=== PATIENT | male | born 1945 | race Caucasian/White ===

== ENCOUNTER 2017-01-09 18:40 | Inpatient (IN) | payer OTHER ==
[~2017-01-09] VITALS: Ht 175.3 cm; Wt 81.6 kg
[~2017-01-09 18:40] MED LIST: ALDACTONE25 MG PO; CHILDREN'S ASPI81 M1 PO; COREG25 M1 PO; COUMADIN 7.5 M7.5 MG PO; DIGOXIN125 MCG PO; FLUZONE HI180 MCG/02 SC; FUROSEMIDE20 MG PO; INDOMETHACIN50 MG PO; LISINOPRIL20 M1 PO; LOVASTATIN40 MG PO; PERCOCET 5-3251 EACH PO; TIKOSYN250 MCG PO; TYLENOL WITH C1 EACH PO
--- NOTE | 2017-01-09 18:43 | NUR ---
02 SAT 89 AT [facility]
--- NOTE | 2017-01-09 18:48 | NUR ---
C/O SOB WITH CONGESTED COUGH X 3-4 DAYS, DENIES CHEST PAIN, 02 SAT 90% IN TRIAGE. EKG DONE ON ARRIVAL.
--- NOTE | 2017-01-09 19:27 | ED DYSPNEA/ASTHMA COMPLAINT ---
History of Present Illness General Chief Complaint: Dyspnea (COPD, CHF, Other) Stated Complaint: SOB Source: patient, family, old records Exam Limitations: no limitations Vital Signs & Intake/Output Vital Signs & Intake/Output Vital Signs Date Time Temp Pulse Resp B/P Pulse O2 O2 Flow FiO2 Ox Delivery Rate 01/14 0903 96 Nasal 1.0L Cannula 01/14 0653 97.5 77 19 146/70 96 Nasal Cannula 01/14 0000 Nasal 1.0L Cannula 01/13 2102 97.9 84 19 125/70 94 01/13 2041 130/78 01/13 2004 97 Nasal 1.0L Cannula 01/13 1600 Nasal 1.0L Cannula 01/13 1457 97.6 70 20 110/60 95 01/13 1325 96 Nasal 1.0L Cannula 01/13 1005 70 150/80 01/13 1004 70 150/80 01/13 1004 70 150/80 ED Intake and Output 01/14 0000 01/13 1200 Intake Total 1250 0 Output Total Balance 1250 0 Intake, IV 0 Intake, Oral 1250 0 Number 0 Bowel Movements Allergies Coded Allergies: morphine (Intermediate, ITCHING 12/27/15) Reconcile Medications Aspirin (Children's Aspirin) 81 MG TAB.CHEW 1 TAB PO DAILY HEART/BLOOD ( Reported) Carvedilol (Coreg) 25 MG TABLET 1 TAB PO BID BP (Reported) Digoxin 125 MCG TABLET 1 TAB PO DAILY HEART (Reported) Dofetilide (Tikosyn) 250 MCG CAPSULE 1 CAP PO BID HEART (Reported) Furosemide 20 MG TABLET 1 TAB PO DAILY FLUID (Reported) Lisinopril 20 MG TABLET 1 TAB PO BID BP (Reported) Lovastatin 40 MG TABLET 1 TAB PO DAILY CHOLESTEROL (Reported) with food Oxycodone HCl/Acetaminophen (Percocet 5-325 MG Tablet) 5 MG-325 MG TABLET 1 TAB PO Q4-6 PRN PAIN Spironolactone (Aldactone) 25 MG TABLET 12.5 MG PO DAILY CHF (Reported) Warfarin Sodium (Coumadin) 7.5 MG TABLET 1 TAB PO DAILY BLOOD THINNER ( Reported) Triage Note: C/O SOB WITH CONGETED COUGH X 3-4 DAYS, DENIES CHEST PAIN, 02 SAT 90% IN TRIAGE. EKG DONE ON ARRIVAL. Triage Nurses Notes Reviewed? yes Onset: Abrupt Duration: week(s): (2), constant, continues in ED Timing: recent history Severity: moderate, severe Activities at Onset: none HPI: 71-year-old male comes into emergency room for further evaluation of shortness of breath and cough is been going on for the past 2 weeks. Mucus production. Fever chills body aches. Upper respiratory symptoms. Symptoms have gotten progressively worse. Denies any other associated symptoms. History of congestive heart failure and coronary disease. Denies any chest pain. Symptoms got worse causing the patient come to the emergency room for further evaluation of exacerbation of his symptoms. (LISETTE JORDAN) Past History Travel History Traveled to [place] past 21 day No Medical History Any Pertinent Medical History? see below for history Cardiovascular: CHF, hypertension Respiratory: asthma Musculoskeletal: ARTHRITIS Endocrine: BORDERLINE DM History of MRSA: No History of VRE: No History of CDIFF: No Pneumonia Vaccine: 09/17/16 Influenza Vaccine: 09/17/16 Surgical History Surgical History: non-contributory, hernia surgery Psychosocial History Who do you live with Spouse What is your primary language Ghanaian Tobacco Use: Quit <30 days ago ETOH Use: denies use Family History Hx Contributory? No (LISETTE JORDAN) Review of Systems Review of Systems Constitutional: Reports: see HPI. EENTM: Reports: see HPI. Respiratory: Reports: see HPI. Cardiovascular: Reports: no symptoms. GI: Reports: no symptoms. Genitourinary: Reports: no symptoms. Musculoskeletal: Reports: no symptoms. Skin: Reports: no symptoms. Neurological/Psychological: Reports: no symptoms. Hematologic/Endocrine: Reports: no symptoms. Immunologic/Allergic: Reports: no symptoms. All Other Systems: Reviewed and Negative (LISETTE JORDAN) Physical Exam Physical Exam General Appearance: well developed/nourished, no apparent distress, alert Head: atraumatic, normal appearance Eyes: Bilateral: normal appearance, EOMI. Ears, Nose, Throat: normal ENT inspection, hearing grossly normal Neck: normal inspection Respiratory: rhonchi, wheezing Cardiovascular: irregularly irregular Gastrointestinal: soft Extremities: normal inspection Neurologic/Psych: awake, alert, oriented x 3, normal gait, normal mood/affect Skin: intact, normal color (LISETTE JORDAN) Core Measures ACS in differential dx? Yes Severe Sepsis Present: No Septic Shock Present: No (OLLIE WANG) Progress Differential Diagnosis: asthma, AMI, bronchitis, costochondritis, CHF, COPD, musculoskeletal pain, pericarditis, pulmonary embolism, pneumonia, pneumothorax, rib fracture, unstable angina Plan of Care: Orders Procedure Date/time Status PROTHROMBIN TIME 01/14 0600 Complete Heart Healthy Diet 01/13 L Active PROTHROMBIN TIME 01/13 1534 Complete RT RE-EVALUATION 01/13 1342 Complete RT: Reevaluation 01/13 1101 Active Current Medications Sig/Toby Start time Last Medication Dose Stop Time Status Admin Acetaminophen 650 MG Q6P PRN 01/090 AC (Tylenol) Ketorolac 15 MG Q6P PRN 01/09 220 AC Tromethamine (Toradol) Laboratory Tests 01/14/17 0732: PT 20.2 H, INR 1.94 H 01/13/17 1600: PT 23.9 H, INR 2.29 H The case was discussed with and signed out to me by DONNELL Thomas at 8 PM 01/09/2017 9:28:49 PM discussed with the patient and his family at length all of his lab results the patient is 93-94% wheezing in all lung hagen on 2 L discussed with them at length that I believe premature discharge would BE medically harmful patient denies pain with inspiration repeat breathing treatment ordered Solu-Medrol 125, Zithromax 500 mg IV ordered.repeat duoneb ordered. case discussed with Dr. Diehl who agrees with plan. d/w pt his elevated INR- The patient already took his dose of Coumadin this evening Case discussed with Dr. Del Cid will admit (OLLIE WANG) Diagnostic Imaging: Viewed by Me: Radiology Read. Discussed w/RAD: Radiology Read. Initial ED EKG: rate (80), AFIB Hand-Off Endorsed To: OLLIE WANG Endorsed Time: 2001 Pending: labs, Xray (BLANCA JACOBO,LISETTE) Radiology Impression: PATIENT: AUGUSTUS PRASAD PRESENT AGE: 71 PATIENT ACCOUNT NO: [id number] : 47 LOCATION: [facility], [place] ORDERING PHYSICIAN: LISETTE JACOBO SERVICE DATE: 01/09/17 EXAM TYPE : RAD - XRY-CHEST XRAY, PA AND LATERAL EXAMINATION: XR CHEST CLINICAL INFORMATION: Cough. Shortness of breath COMPARISON: Chest x-ray 09/08/2010 TECHNIQUE: 2 views of the chest were obtained. FINDINGS: Dual-lead pacemaker in right atrium and right ventricle unchanged position since prior study. Heart size is normal. There is calcification of aorta. No pulmonary vascular congestion. Lungs are clear. No pleural effusion. Multilevel degenerative change of spine with disc height narrowing and endplate spurs. IMPRESSION: No acute change of chest. DICTATED BY: KATELYNN PEREZ MD DATE/TIME DICTATED:01/09/172006 HAND GLASS CUTTER:ABIMAEL DATE/TIME TRANSCRIBED:01/09/172006 CONFIDENTIAL, DO NOT COPY WITHOUT APPROPRIATE AUTHORIZATION. <Electronically signed in Other Vendor System> SIGNED BY: KATELYNN PEREZ MD 01/09/172012 Rhythm Strip: normal sinus rhythm (OLLIE WANG) Departure Departure Condition: Stable Referrals: ANTELMO DEL CID MD (PCP/Family) Departure Forms: Customer Survey General Discharge Information (LISETTE JORDAN) Departure Time of Disposition: 2128 Disposition: STILL A PATIENT Clinical Impression Primary Impression: Bronchitis Secondary Impressions: Elevated INR Admission Note Spoke With: ANTELMO DEL CID MD Documentation of Exam: Documentation of any treatments & extenuating circumstances including Concerns Regarding Discharge (functional status, medication knowledge or non-compliance, living conditions, etc.) that warrant an admission rather than observation: IV steroids IV antibiotics trend labs, pulmonology consult respiratory treatment when necessary premature discharge would BE medically harmful as patient desaturates on room air not at baseline (OLLIE WANG) PA/VIDEO OPERATOR Co-Sign Statement Statement: ED Attending supervision documentation- [X] I saw and evaluated the patient. I have also reviewed all the pertinent lab results and diagnostic results. I agree with the findings and the plan of care as documented in the PA's/VIDEO OPERATOR's documentation. [X] I have reviewed the ED Record and agree with the PA's/VIDEO OPERATOR's documentation. [] Additions or exceptions (if any) to the PAs/VIDEO OPERATOR's note and plan are summarized below: [] (ASHWIN ESTRADA,SHIRIN) Critical Care Note Critical Care Note Critical Care Time: non-applicable (OLLIE WANG)
--- NOTE | 2017-01-09 20:11 | NUR ---
BLOOD DRAWN AND SENT TO LAB GOLD LAV BLUE PINK RANDHAWA TUBES COLLECTED WELL BLOOD CULTURES 2 SETS
--- NOTE | 2017-01-09 20:13 | RADIOLOGY REPORT ---
EXAMINATION: XR CHEST CLINICAL INFORMATION: Cough. Shortness of breath COMPARISON: Chest x-ray 09/08/2010 TECHNIQUE: 2 views of the chest were obtained. FINDINGS: Dual-lead pacemaker in right atrium and right ventricle unchanged position since prior study. Heart size is normal. There is calcification of aorta. No pulmonary vascular congestion. Lungs are clear. No pleural effusion. Multilevel degenerative change of spine with disc height narrowing and endplate spurs. IMPRESSION: No acute change of chest.
[2017-01-09 20:17] LABS: ABSOLUTE BASOPHIL COUNT 0 /CUMM (0.0-0.2); ABSOLUTE EOSINOPHIL COUNT 0.1 /CUMM (0.0-0.7); ABSOLUTE GRANULOCYTE CT 3.7 /CUMM (1.4-6.5); ABSOLUTE LYMPH COUNT 1.1 /CUMM (1.2-3.4); ABSOLUTE MONOCYTE COUNT 0.5 /CUMM (0.10-0.60); BASOPHIL % 0.3 % (0.0-2.0); EOSINOPHIL % 2.1 % (0-5); GRANULOCYTE % 68.6 % (42.2-75.2); HEMATOCRIT 35.8 % (42-52); MEAN CORPUSCULAR HGB 27.1 PG (27.0-31.0); MEAN CORPUSCULAR HGB CONC 33.1 G/DL (33.0-37.0); MEAN CORPUSCULAR VOLUME 81.9 FL (80.0-94.0); MEAN PLATELET VOLUME 7.5 FL (7.4-10.4); PLATELET COUNT 167 /CUMM (130-400); RBC DISTRIBUTION WIDTH 14.3 % (11.5-14.5); RED BLOOD CELL CT 4.37 /CUMM (4.70-6.10); WHITE BLOOD CELL COUNT 5.4 /CUMM (4.8-10.8)
--- NOTE | 2017-01-09 20:36 | NUR ---
PT REPORTS FEELING BETTER AFTER BREATHING TREATMENT. PT DENIES CP. PT APPEARS COMFORTBALE. FAMILY AT BEDSIDE.
--- NOTE | 2017-01-09 21:44 | NUR ---
CRITICAL TEST RESULTS [id number] AUGUSTUS PRASAD 71 M TESTS AND RESULTS: PT 55 INR 5.33 Results received and read back by: OSCAR HILL Results received date and time: 01/09/172143 The following provider was notified of the results, and read the results back: DONNELL JOHNSON Notified date and time: 01/09/17 at 2140
--- NOTE | 2017-01-09 22:37 | NUR ---
HOUSE STAFF AT BEDSIDE
--- NOTE | 2017-01-09 23:13 | History & Physical ---
See Addendum AVERY ESTRADA,NAPOLEONCarlos 01/09/17 4993: General Information and HPI MD Statement: I have seen and personally examined AUGUSTUS PRASAD and documented this H&P. The patient is a 71 year old M who presented with a patient stated chief complaint of [shortness of breath]. Source of Information: patient, old records Exam Limitations: no limitations History of Present Illness: This is a 71-year-old male with past medical history significant for asthma, BPH , obstructive lung disease, CHF S/P hospitalization and intubation for apnea in 2008, arthritis, nonischemic cardiomyopathy with reduced EF (20-30%?) and defibrillator, pacemaker in place, A. fib on Coumadin, who comes in with chief complaint of shortness of breath. Patient states that he has had increased trouble breathing in the past 3 or 4 days. Patient also endorses cough with whitish sputum and congestion/coryza. Today he stated his symptoms got in the way of his daily living. Normally he is able to ambulate up a flight of stairs with no difficulty, however today he felt short of breath even sitting down. Denies any fever, nausea, vomiting, chest pain, palpitations, dizziness, increased orthopnea. He does endorse some chills and body aches. He has sick contact in ex- with whom he is co-habitating. Patient denies any alcohol, drugs, or current smoking. Additionally denies any recent travel. Note pt has significant surgical history including a triple a repair in September 2016, pacemaker placement, defibrillator, tonsils, carpal tunnel 2, cardiac cath, and hernia with mesh repair. Allergies/Medications Allergies: Coded Allergies: morphine (Intermediate, ITCHING 12/27/15) Home Med list Aspirin (Children's Aspirin) 81 MG TAB.CHEW 1 TAB PO DAILY HEART/BLOOD ( Reported) Carvedilol (Coreg) 25 MG TABLET 1 TAB PO BID BP (Reported) Digoxin 125 MCG TABLET 1 TAB PO DAILY HEART (Reported) Dofetilide (Tikosyn) 250 MCG CAPSULE 1 CAP PO BID HEART (Reported) Furosemide 20 MG TABLET 1 TAB PO DAILY FLUID (Reported) Lisinopril 20 MG TABLET 1 TAB PO BID BP (Reported) Lovastatin 40 MG TABLET 1 TAB PO DAILY CHOLESTEROL (Reported) with food Oxycodone HCl/Acetaminophen (Percocet 5-325 MG Tablet) 5 MG-325 MG TABLET 1 TAB PO Q4-6 PRN PAIN Spironolactone (Aldactone) 25 MG TABLET 12.5 MG PO DAILY CHF (Reported) Warfarin Sodium (Coumadin) 7.5 MG TABLET 1 TAB PO DAILY BLOOD THINNER ( Reported) Compliance With Home Meds: GOOD Past History Travel History Traveled to [place] past 21 day No Medical History Cardiovascular: CHF, hypertension Respiratory: asthma Musculoskeletal: ARTHRITIS Endocrine: BORDERLINE DM History of MRSA: No History of VRE: No History of CDIFF: No Pneumonia Vaccine: 09/17/16 Influenza Vaccine: 09/17/16 Surgical History Surgical History: hernia surgery, AAA repair in September 2016. Cardiac cath, hernia repair with mesh, carpal tunnel bilaterally, tonsils, pacemaker, defibrillator, Past Family/Social History Psychosocial History Who Do You Live With? ex- Primary Language: Turkish Smoking Status: Former Smoker ETOH Use: denies use Illicit Drug Use: denies illicit drug use Functional Ability ADLs Independent: dressing, eating, toileting, bathing. Ambulation: independent IADLs Independent: shopping, housework, finances, food prep, telephone, transportation , medication admin. Review of Systems Review of Systems Constitutional: Reports: chills, diaphoresis, malaise, weakness. Denies: fever. EENTM: Denies: blurred vision, double vision, visual changes, hearing changes, nasal pain, throat pain. Cardiovascular: Denies: chest pain, edema, palpitations, syncope. Respiratory: Reports: cough, short of breath, sputum production, wheezing. Denies: hemoptysis. GI: Reports: constipation. Denies: abdominal pain, bloating, diarrhea, nausea, vomiting. Genitourinary: Reports: no symptoms. Musculoskeletal: Reports: joint pain. Denies: back pain. Skin: Reports: no symptoms. Exam & Diagnostic Data Last 24 Hrs of Vital Signs/I&O Vital Signs Date Time Temp Pulse Resp B/P Pulse O2 O2 Flow FiO2 Ox Delivery Rate 01/10 0145 94 Nasal 2.0L Cannula 01/10 0054 98.0 74 20 150/90 94 Nasal 2.0L Cannula 01/10 0015 96.0 76 18 123/87 96 Nasal 2.0L Cannula 01/09 2300 97.0 78 20 110/69 95 Nasal 2.0L Cannula 01/09 2145 94 Nasal 2.0L Cannula 01/09 2029 97.6 71 20 107/64 94 Nasal 2.0L Cannula 01/09 1947 98 Nasal 2.0L Cannula 01/09 1855 97.6 94 18 179/103 90 Room Air Intake & Output 01/10 0800 01/10 0000 01/09 1600 Intake Total 20 Output Total Balance 20 Intake, Oral 20 Patient 81.647 kg 81.647 kg Weight Physical Exam General Appearance Alert, Oriented X3, Cooperative, No Acute Distress Skin No Rashes, No Breakdown HEENT Atraumatic, PERRLA, EOMI Neck Supple Cardiovascular irregular and distant heart sounds. Lungs pt had some diminished air movmement, crackles particularly in R. Lower lobe, no egophony. Abdomen Soft, No Tenderness Neurological Normal Speech, Cranial Nerves 3-12 NL Extremities No Edema Last 24 Hrs of Labs/Yusuf: Laboratory Tests 01/10/17 0010: Troponin I Pending 01/09/17 2224: Lactic Acid Cancelled 01/09/172003: Anion Gap 10, Estimated GFR > 60, BUN/Creatinine Ratio 20.0, Glucose 115 H, Lactic Acid 0.7, Calcium 8.7, Total Bilirubin 0.5, AST 30, ALT 37, Alkaline Phosphatase 72, Creatine Kinase 214 H, Troponin I 0.02, Total Protein 6.9, Albumin 3.7, Globulin 3.2, Albumin/Globulin Ratio 1.2, PT 55.0 *H, INR 5.33 *H, CBC w Diff NO MAN DIFF REQ, RBC 4.37 L, MCV 81.9, MCH 27.1, RDW 14.3, MPV 7.5, Gran % 68.6, Lymphocytes % 20.6, Monocytes % 8.4, Eosinophils % 2.1, Basophils % 0.3, Absolute Granulocytes 3.7, Absolute Lymphocytes 1.1 L, Absolute Monocytes 0.5, Absolute Eosinophils 0.1, Absolute Basophils 0, PUBS MCHC 33.1 Microbiology 01/10 2256 URINE ROUT: Legionella Antigen - ORD 01/10 2256 URINE ROUT: Streptococcus pneumoniae Antigen (M - ORD 01/10 2256 LOWER RESP: Respiratory Culture - ORD 01/10 2256 LOWER RESP: Gram Stain - ORD 01/09 2010 BLOOD: Blood Culture - RECD 01/10 2004 BLOOD: Blood Culture - RECD 01/09 1946 NASROSAURAARYN: Influenza Virus A & B Rapid Smear - ORD Assessment/Plan Assessment: This is a 71-year-old male with significant cardiac history including nonischemic cardiomyopathy, with a defibrillator and pacemaker, triple a with endovascular aneurysm repair in September 2016, who presents with chief complaint of shortness of breath. At [facility] in ED patient had O2 sat of 89. Given his history of CHF and intubation in 2008 patient was admitted for further workup of shortness of breath. ED workup shows: 97.6, 94, 18, 179/103, 90. White count 5.4, hemoglobin 12.8, hematocrit 35.8, INR 5.33, BEP within normal limits. CK 214. Chest x-ray showed no acute changes, no evidence of vascular congestion. plan: Acute hypoxic Respfailure: Patient does have history of CHF, obstructive lung disease, asthma, and presents with chief complaint of 3-4 days of difficulty breathing. Satting 89 initially in ED. He subsequently improved with nasal cannula and 2 Neb treatments. At present looks like respiratory etiology for shortness of breath. His chest x-ray is clear of any vascular congestion. Patient denies any chest pain, and has no overt signs of volume overload including lower extremity edema. Flu is negative. Though note CK elevated at 214 and patient does complain of myalgias. Cannot rule out possibility of an influenza-like illness or viral bronchitis. * Con't Legionella test * Con't O2 via nasal cannula * TRC nebs * At this time as patient is afebrile, with no white count ,hold off antibiotics Supra-therapeutic INR: Patient has history of A. fib on Coumadin. Today INR measured at 5.33. The patient's surgery took his Coumadin earlier today. * Hold Coumadin * Continue to remeasure INR Cardiomyopathy, A. fib, hypercholesterolemia, CHF : Chronic and stable * Continue Tikosyn 250 g twice a day * Continue Carvedilol 2.5 twice a day * Continue Lisinopril 20 mg twice a day * Continue 10 you Furosemide 20 mg * Continue Digoxin 0.125 * Continue Lovastatin 40 mg * Continue Spironolactone 12.5 mg * HOLD! Coumadin 7.5 Full code Heart healthy diet Chemical DVT prophylaxis As Ranked By This Provider Problem List: 1. Bronchitis 2. Elevated INR Core Measures/Miscellaneous Acute Coronary Syndrome ACS Diagnosis: No Cerebrovascular Accident CVA/TIA Diagnosis: No Congestive Heart Failure CHF Diagnosis: No Venous Thromboembolism VTE Risk Factors: [facility] prophylaxis d/t: No contraindications No VTE Pharm Prophylaxis d/t: No contraindications VTE Diagnosis: No VTE Type: NONE VTE Confirmed by (Test): NONE Severe Sepsis Severe Sepsis Present: No Septic Shock Septic Shock Present: No Miscellaneous Documentation Attending Case Discussed With: ANTELMO ELIZONDO MD Primary Care Physician: ANTELMO ELIZONDO MD Patient sees these Specialists unknown Level of Patient Care: General Medicine VIOLET ESTRADA,CYNDY 01/10/17 0418: Resident Review Statement Resident Statement: examined this patient, discussed with biology intern, agreed with biology intern, discussed with family, reviewed EMR data (avail), discussed with nursing , discussed with case mgmt, reviewed images, amended to note Other Findings: 71-year-old man with history of severe congestive heart failure status post permanent pacemaker, coronary artery disease with myocardial infarction status post cath, AAA status post Arash asthma osteoarthritis proximal margin fibrillation dyslipidemia presents with shortness of breath productive cough 2 weeks fevers chills body aches. Suspect bronchitis, or influenza-like illness. Supportive treatment. Discontinue warfarin, check INR daily. Continue cardiac meds for rate control. Monitor for fever. Await blood cultures. Antibiotics if patient gets worse. DVT prophylaxis patient is already anticoagulated on warfarin. Full code YUSUF HUANG 01/12/17 0423: Attending MD Review Statement Attending Statement Attending Assessment/Plan: Patient's H and P is assigned to me as an error. Patient is seen and discussed with Dr. Antelmo ELIZONDO MD.
--- NOTE | 2017-01-09 23:31 | NUR ---
PT SLEEPING. EASILY AROUSED TO VERBAL STIMULATION. RESP UNLABORED. NO APPARENT DISTRESS
--- NOTE | 2017-01-10 00:13 | NUR ---
REPEAT TROPONIN SENT
[2017-01-10 00:54] VITALS: BP 150/90
--- NOTE | 2017-01-10 01:57 | NUR ---
NURSING NOTE: PT ARRIVED TO 2NA VIA WHEELCHAIR AT 0035. PT ALERT, ORIENTS, CALM, AND COOPERATIVE. PT ON 2L NC, NO SIGNS OF RESPIRATORY DISTRESS. PT ORIENTED TO STAFF, ROOM, AND CALL GRADY. PT AMBULATING INDPENDENTLY, EXTRENSION TUBING PROVIDED FOR OXYGEN. ADMISSION ASSESSMENT COMPLETED. QUICK FLU SWAB NOT PERFORMED IN ER. THIS RN CALLED ER NURSE OSCAR TO CONFIRM. FLU SWAB REQUESTED FROM LAB. RN WILL CONTINUE TO MONITOR.
[2017-01-10 06:38] VITALS: BP 140/80
--- NOTE | 2017-01-10 07:17 | PN- Housestaff ---
Subjective Follow-up For: Bronchitis Supratherapeutic INR Atrial fibrillation Subjective: Patient was seen and examined this morning, patient is afebrile, vital signs are stable, patient wanted to be on 2 L oxygen saturation 96%. Patient reported dry cough, no other complaint. Review of Systems Constitutional: Reports: see HPI. Objective Last 24 Hrs of Vital Signs/I&O Vital Signs Date Time Temp Pulse Resp B/P Pulse O2 O2 Flow FiO2 Ox Delivery Rate 01/10 1427 97.4 70 20 152/84 95 01/10 1217 Nasal 2.0L Cannula 01/10 1215 96 Nasal 2.0L Cannula 01/10 0845 140/88 01/10 0845 140/88 01/10 0844 140/88 01/10 0800 96 Nasal 2.0L Cannula 01/10 0638 97.9 71 20 140/80 97 Nasal 2.0L Cannula 01/10 0300 75 158/88 01/10 0145 94 Nasal 2.0L Cannula 01/10 0054 98.0 74 20 150/90 94 Nasal 2.0L Cannula 01/10 0015 96.0 76 18 123/87 96 Nasal 2.0L Cannula 01/09 2300 97.0 78 20 110/69 95 Nasal 2.0L Cannula 01/09 2145 94 Nasal 2.0L Cannula 01/09 2029 97.6 71 20 107/64 94 Nasal 2.0L Cannula 01/09 1947 98 Nasal 2.0L Cannula 01/09 1855 97.6 94 18 179/103 90 Room Air Intake & Output 01/10 1600 01/10 0800 01/10 0000 Intake Total 1800 400 20 Output Total 680 Balance 1120 400 20 Intake, Oral 1800 400 20 Output, Urine 680 Patient 81.647 kg 81.647 kg Weight Physical Exam General Appearance: Alert, Oriented X3, Cooperative, No Acute Distress Skin: No Rashes, No Breakdown, No Significant Lesion HEENT: Atraumatic, PERRLA, EOMI, Mucous Membr. moist/pink Neck: Supple, No JVD Cardiovascular: Normal S1, Normal S2, No Murmurs, irregular rhythm Lungs: Clear to Auscultation, Normal Air Movement Abdomen: Normal Bowel Sounds, Soft, No Tenderness Neurological: Normal Gait, Normal Speech, Strength at 5/5 X4 Ext, Normal Tone, Sensation Intact, Cranial Nerves 3-12 NL, Reflexes 2+ Extremities: No Clubbing, No Cyanosis, No Edema, Normal Pulses Assessment/Plan Assessment: This is a 71-year-old male with significant cardiac history including nonischemic cardiomyopathy, with a defibrillator and pacemaker, triple a with endovascular aneurysm repair in September 2016, who presents with chief complaint of shortness of breath. At [facility] in ED patient had O2 sat of 89. Given his history of CHF and intubation in 2008 patient was admitted for further workup of shortness of breath. plan: Bronchitis * Con't O2 via nasal cannula * TRC nebs * Patient continued to be afebrile with no white blood cell count * Continue off antibiotics Supra-therapeutic INR: Patient has history of A. fib on Coumadin. * INR 5.33 * Hold Coumadin * INR tomorrow and will dose accordingly Cardiomyopathy, A. fib, hypercholesterolemia, CHF : Chronic and stable * Continue Tikosyn 250 g twice a day * Continue Carvedilol 2.5 twice a day * Continue Lisinopril 20 mg twice a day * Continue 10 you Furosemide 20 mg * Continue Digoxin 0.125 * Continue Lovastatin 40 mg * Continue Spironolactone 12.5 mg * HOLD! Coumadin 7.5 Full code Heart healthy diet DVT prophylaxis mechanical Problem List: 1. Elevated INR 2. Bronchitis Pain Ratin Pain Location: None Pain Goal: Pain 4 or less Pain Plan: Mild pain pathway Tomorrow's Labs & Rationales: INR
[2017-01-10 08:39] LABS: ABSOLUTE BASOPHIL COUNT 0 /CUMM (0.0-0.2); ABSOLUTE EOSINOPHIL COUNT 0 /CUMM (0.0-0.7); ABSOLUTE GRANULOCYTE CT 1.9 /CUMM (1.4-6.5); ABSOLUTE LYMPH COUNT 0.8 /CUMM (1.2-3.4); ABSOLUTE MONOCYTE COUNT 0.1 /CUMM (0.10-0.60); BASOPHIL % 0.4 % (0.0-2.0); EOSINOPHIL % 0.2 % (0-5); GRANULOCYTE % 67.6 % (42.2-75.2); HEMATOCRIT 34.6 % (42-52); MEAN CORPUSCULAR HGB CONC 33.2 G/DL (33.0-37.0); MEAN CORPUSCULAR VOLUME 81.4 FL (80.0-94.0); MEAN PLATELET VOLUME 8.1 FL (7.4-10.4); PLATELET COUNT 163 /CUMM (130-400); RBC DISTRIBUTION WIDTH 14.5 % (11.5-14.5); RED BLOOD CELL CT 4.25 /CUMM (4.70-6.10); WHITE BLOOD CELL COUNT 2.8 /CUMM (4.8-10.8)
--- NOTE | 2017-01-10 12:18 | Admission Certification ---
Admission Certification Certification Statement - As attending physician, I certify that at the time of - admission, based on clinical presentation, severity of - symptoms, need for further diagnostic testing and - therapeutic interventions, and risk of adverse outcomes - without in-hospital treatment, in my clinical assessment, - this patient requires an acute hospital stay for a minimum - of two nights or longer. I have also considered psychsocial - factors such as support system, advanced age, financial - issues, cognitive issues, and failed out-patient treatments, - past re-admission history, safety of patient, and lack of - compliance as applicable. Specific rationale supporting this admission is: Cough, wheezing or shortness of breath not responding to ER treatment
--- NOTE | 2017-01-10 12:22 | PN- Att Addend ---
Attending Addendum Attending Brief Note 71-year-old white male with many comorbidities, several days increased shortness of breath cough sputum comes to the emergency room hypoxemic. Not responding to respiratory treatments. Chest x-ray showed no acute infiltrates or acute congestive heart failure, his white count was normal but due to all his comorbidities and not feeling any better and being hypoxemic patient was admitted on the visit this morning, he feels a little better, still wheezing but states to respiratory treatments help his oxygen is on. Laboratory Tests 01/10/17 0630: Anion Gap 10, Estimated GFR > 60, BUN/Creatinine Ratio 28.3 H, CBC w Diff NO MAN DIFF REQ, RBC 4.25 L, MCV 81.4, MCH 27.0, RDW 14.5, MPV 8.1, Gran % 67.6, Lymphocytes % 28.7, Monocytes % 3.1, Eosinophils % 0.2, Basophils % 0.4, Absolute Granulocytes 1.9, Absolute Lymphocytes 0.8 L, Absolute Monocytes 0.1 L, Absolute Eosinophils 0, Absolute Basophils 0, PUBS MCHC 33.2 01/10/17 0010: Troponin I 0.02 01/09/17 2224: Lactic Acid Cancelled 01/09/17 2004: Anion Gap 10, Estimated GFR > 60, BUN/Creatinine Ratio 20.0, Glucose 115 H, Lactic Acid 0.7, Calcium 8.7, Total Bilirubin 0.5, AST 30, ALT 37, Alkaline Phosphatase 72, Creatine Kinase 214 H, Troponin I 0.02, Total Protein 6.9, Albumin 3.7, Globulin 3.2, Albumin/Globulin Ratio 1.2, PT 55.0 *H, INR 5.33 *H, CBC w Diff NO MAN DIFF REQ, RBC 4.37 L, MCV 81.9, MCH 27.1, RDW 14.3, MPV 7.5, Gran % 68.6, Lymphocytes % 20.6, Monocytes % 8.4, Eosinophils % 2.1, Basophils % 0.3, Absolute Granulocytes 3.7, Absolute Lymphocytes 1.1 L, Absolute Monocytes 0.5, Absolute Eosinophils 0.1, Absolute Basophils 0, PUBS MCHC 33.1 Microbiology 01/10 255 NASOPHARYN: Influenza Virus A & B Rapid Smear - COMP Microbiology Date/Time Procedure - Status Source Growth 01/10 255 Influenza Virus A & B Rapid Smear - COMP NASOPHARYN 01/10 2256 Legionella Antigen - COLB URINE ROUT 01/10 2256 Streptococcus pneumoniae Antigen (M - COLB URINE ROUT 01/10 2256 Respiratory Culture - COLB LOWER RESP 01/10 2256 Gram Stain - COLB LOWER RESP 01/09 2010 Blood Culture - RECD BLOOD 01/10 2004 Blood Culture - RECD BLOOD
[2017-01-10 14:27] VITALS: BP 152/84
[2017-01-10 21:20] VITALS: BP 180/100
--- NOTE | 2017-01-10 21:29 | NUR ---
PT'S BP NOTED TO BE 180/100. SCHEDULED COREG AND LISINOPRIL ADMINISTERED. GRAPHIC DESIGN ASSISTANT SHERIDAN VARELA UPDATED. WILL CHECK PT'S BP AGAIN IN 45 MINS TO AN HOUR.
[2017-01-10 21:45] VITALS: BP 184/110
[2017-01-10 22:42] VITALS: BP 146/96
[2017-01-11 07:05] VITALS: BP 152/96
--- NOTE | 2017-01-11 07:29 | PN- Housestaff ---
Subjective Follow-up For: Bronchitis Supratherapeutic INR Atrial fibrillation Subjective: Patient was seen and examined this morning, he complained of congested chest and productive cough. He continued to be afebrile. Denied any fever or chills. Denied any joint pain or muscle pain. Patient reported that he quit smoking 10 years ago, never noticed with any lung disease. Review of Systems Constitutional: Reports: see HPI. Objective Last 24 Hrs of Vital Signs/I&O Vital Signs Date Time Temp Pulse Resp B/P Pulse O2 O2 Flow FiO2 Ox Delivery Rate 01/11 0934 70 150/78 01/11 0934 70 150/78 01/11 0934 70 150/78 01/11 0809 95 Nasal 2.0L Cannula 01/11 0705 98.3 74 20 152/96 96 Nasal Cannula 01/11 0000 Nasal 2.0L Cannula 01/10 2242 98.7 76 20 146/96 95 Nasal Cannula 01/10 2145 98.4 74 20 184/110 96 Nasal Cannula 01/10 2124 72 180/100 01/10 2124 72 180/100 01/10 2120 72 180/100 01/10 1730 96 Nasal 2.0L Cannula 01/10 1600 98 Nasal 2.0L Cannula 01/10 1427 97.4 70 20 152/84 95 01/10 1217 Nasal 2.0L Cannula 01/10 1215 96 Nasal 2.0L Cannula Intake & Output 01/11 1600 01/11 0800 01/11 0000 Intake Total 100 100 Output Total Balance 100 100 Intake, Oral 100 100 Physical Exam General Appearance: Alert, Oriented X3, Cooperative, No Acute Distress Skin: No Rashes, No Breakdown, No Significant Lesion HEENT: Atraumatic, PERRLA, EOMI, Mucous Membr. moist/pink Neck: Supple Cardiovascular: Normal S1, Normal S2, No Murmurs, irregular rhythm Lungs: decreased air entry I lateral diffuse rhonchi and wheeze Abdomen: Normal Bowel Sounds, Soft, No Tenderness Neurological: Normal Gait, Normal Speech, Strength at 5/5 X4 Ext, Normal Tone, Sensation Intact, Cranial Nerves 3-12 NL, Reflexes 2+ Extremities: No Clubbing, No Cyanosis, No Edema, Normal Pulses Assessment/Plan Assessment: This is a 71-year-old male with significant cardiac history including nonischemic cardiomyopathy, with a defibrillator and pacemaker, triple a with endovascular aneurysm repair in September 2016, who presents with chief complaint of shortness of breath. At [facility] in ED patient had O2 sat of 89. Given his history of CHF and intubation in 2008 patient was admitted for further workup of shortness of breath. plan: Bronchitis * Con't O2 via nasal cannula * TRC nebs * Will start Solu-Medrol 40 mg twice a day * Patient continued to be afebrile with no white blood cell count * Continue off antibiotics * Possible discharge tomorrow if patient improves * If symptoms didn't improve consider chest x-ray and CBC, start antibiotic for possible COPD exacerbation * Patient will be advised to follow with primary care physician and possible correctional supervisor for pulmonary function test given history of smoking Supra-therapeutic INR: Patient has history of A. fib on Coumadin. * INR 4.76 <5.33 * Hold Coumadin * INR tomorrow and will dose accordingly Cardiomyopathy, A. fib, hypercholesterolemia, CHF : Chronic and stable * Continue Tikosyn 250 g twice a day * Continue Carvedilol 2.5 twice a day * Continue Lisinopril 20 mg twice a day * Continue 10 you Furosemide 20 mg * Continue Digoxin 0.125 * Continue Lovastatin 40 mg * Continue Spironolactone 12.5 mg * HOLD! Coumadin 7.5 Full code Heart healthy diet DVT prophylaxis mechanical Problem List: 1. Bronchitis 2. Elevated INR Pain Ratin Pain Location: None Pain Goal: Pain 4 or less Pain Plan: Mild pain pathway Tomorrow's Labs & Rationales: INR, CBC
[2017-01-11 08:49] LABS: PT 49.2 SEC (9.4-12.5)
--- NOTE | 2017-01-11 11:34 | PN- Att Addend ---
Attending Addendum Attending Brief Note Patient had more wheezing overnight was reassessed this morning and was started on IV steroids. A little bit more comfortable now. Patient is a febrile vital signs are stable and no other changes on physical. Will continue to monitor during the day with IV steroids respiratory therapy. In terms continue will ask pulmonary to check the patient. Current Medications Sig/Toby Start time Last Medication Dose Route Stop Time Status Admin Acetaminophen 650 MG Q6P PRN 01/09 2200 AC PO Albuterol Sulfate 3 ML TID 01/10 1600 AC 01/11 INH 0808 Aspirin 81 MG DAILY 01/10 1000 AC 01/11 PO 0934 Atorvastatin Calcium 10 MG 1700 01/10 1700 AC 01/10 PO 1703 Carvedilol 25 MG BID 01/10 0016 AC 01/11 PO 0934 Digoxin 0.125 MG DAILY 01/10 1000 AC 01/11 PO 0934 Dofetilide 250 MCG BID 01/10 0015 AC 01/11 PO 0934 Furosemide 20 MG DAILY 01/10 1000 AC 01/11 PO 0934 Guaifenesin 600 MG Q12 01/09 2201 AC 01/11 PO 0934 Ketorolac 15 MG Q6P PRN 01/09 2200 AC Tromethamine IV Lisinopril 20 MG BID 01/10 1000 AC 01/11 PO 0934 Methylprednisolone 40 MG BID 01/11 1000 AC 01/11 IV 0932 Patient Medication 1 ED .STK-MED ONE 01/10 1425 [place] Teaching ED 01/10 1426 Spironolactone 12.5 MG DAILY 01/10 1000 AC 01/11 PO 0933 Laboratory Tests 01/11/17 0650: PT 49.2 *H, INR 4.76 *H Vital Signs Date Time Temp Pulse Resp B/P Pulse O2 O2 Flow FiO2 Ox Delivery Rate 01/11 934 70 150/78 01/11 0934 70 150/78 01/11 0934 70 150/78 01/11 0809 95 Nasal 2.0L Cannula 01/11 0800 95 Nasal 2.0L Cannula 01/11 0705 98.3 74 20 152/96 96 Nasal Cannula
[2017-01-11 14:54] VITALS: BP 140/62
--- NOTE | 2017-01-11 16:10 | Patient Discharge Instructions ---
Discharge Instructions General Discharge Information You were seen/treated for: Bronchitis Special Instructions: -Please follow-up with your primary care physician within 1 week after discharge -Please follow-up with your voice data communications engineer after discharge -Please follow-up with the vascular surgery after discharge -Please follow up with Dr. Jose within 1-2 weeks after discharge Acute Coronary Syndrome Inclusion Criteria At DC or during hospital stay patient has or had the following: ACS DIAGNOSIS No Discharge Core Measures Meds if any: Prescribed or Continued at Discharge Meds if any: NOT Prescribed or Continued at Discharge Congestive Heart Failure Inclusion Criteria At DC or during hospital stay patient has or had the following: CHF DIAGNOSIS No Discharge Core Measures Meds if any: Prescribed or Continued at Discharge Meds if any: NOT Prescribed or Continued at Discharge Cerebrovascular accident Inclusion Criteria At DC or during hospital stay patient has or had the following: CVA/TIA Diagnosis No Discharge Core Measures Meds if any: Prescribed or Continued at Discharge Meds if any: NOT Prescribed or Continued at Discharge Venous thromboembolism Inclusion Criteria VTE Diagnosis No VTE Type NONE VTE Confirmed by (Test) NONE Discharge Core Measures - Per Current guidelines, there needs to be overlap - treatment for the first 5 days of Warfarin therapy. - If discharged on Warfarin prior to 5 days of - overlap therapy, the patient will need to be - assessed for post discharge needs including - *Post discharge parental anticoagulation - *Warfarin and/or parental anticoagulation education - *Follow up date to check INR post discharge At least 5 days overlap therapy as Inpatient Yes Meds if any: Prescribed or Continued at Discharge Note: Overlap Therapy is Warfarin and Anticoagulant Meds if any: NOT Prescribed or Continued at Discharge
--- NOTE | 2017-01-11 18:54 | NUR ---
ALERT AND ORIENTED X 3. VITAL SIGNS STABLE. DENIES CHEST PAIN. + PULSES ON 2L OXYGEN VIA NASAL CANNULA. EXERTION SHORTNESS OF BREATH. STEADY GAIT NO DISTRESS NOTED. PATIENT RESTING AT THIS TIME WILL CONTINUE TO MONITOR
[2017-01-11 22:15] VITALS: BP 170/90
--- NOTE | 2017-01-11 23:40 | NUR ---
2230 REFRIGERATION SPECIALIST AWARE OF BP. SCHEDULED MEDICATION GIVEN.
--- NOTE | 2017-01-11 23:43 | NUR ---
2049 ON 1L O2 VIA NASAL CANNULA PER RT ORDER
[2017-01-12 06:39] VITALS: BP 134/68
[2017-01-12 08:10] LABS: ABSOLUTE BASOPHIL COUNT 0 /CUMM (0.0-0.2); ABSOLUTE EOSINOPHIL COUNT 0 /CUMM (0.0-0.7); ABSOLUTE GRANULOCYTE CT 4.3 /CUMM (1.4-6.5); ABSOLUTE MONOCYTE COUNT 0.1 /CUMM (0.10-0.60); BASOPHIL % 0.1 % (0.0-2.0); EOSINOPHIL % 0.2 % (0-5); GRANULOCYTE % 78.7 % (42.2-75.2); HEMATOCRIT 37.8 % (42-52); MEAN CORPUSCULAR HGB 26.8 PG (27.0-31.0); MEAN CORPUSCULAR HGB CONC 32.5 G/DL (33.0-37.0); MEAN CORPUSCULAR VOLUME 82.3 FL (80.0-94.0); MEAN PLATELET VOLUME 7.9 FL (7.4-10.4); RED BLOOD CELL CT 4.59 /CUMM (4.70-6.10)
[2017-01-12 08:14] LABS: PT 35.8 SEC (9.4-12.5)
--- NOTE | 2017-01-12 08:33 | PN- Housestaff ---
Subjective Follow-up For: Bronchitis Supratherapeutic INR History of atrial fibrillation Subjective: Patient seen and examined. He is seen sitting upright in bed resting comfortably. He appears to be in no acute distress. At his bedside is a family member whom is up-to-date about his clinical condition has no further questions at this time. He reports persistent mild shortness of breath with cough but otherwise feels fine. He has no other complaints. Additionally he denies any headache, fever, chills, chest pain, palpitations, nausea, vomiting, diarrhea. No overnight events reported. Review of Systems Constitutional: Reports: see HPI. Objective Last 24 Hrs of Vital Signs/I&O Vital Signs Date Time Temp Pulse Resp B/P Pulse O2 O2 Flow FiO2 Ox Delivery Rate 01/12 1030 88 110/70 01/12 1030 88 110/70 01/12 1030 88 110/70 01/12 0844 97 Nasal 1.0L Cannula 01/12 0800 92 Nasal 1.0L Cannula 01/12 0639 97.2 73 20 134/68 96 Nasal 2.0L Cannula 01/12 0156 95 Nasal 1.0L Cannula 01/12 0000 95 Nasal 1.0L Cannula 01/11 2217 70 170/98 01/11 2217 98 170/98 01/11 2215 96.5 74 20 170/90 95 Nasal 1.0L Cannula 01/11 2050 98 Nasal 2.0L Cannula 01/11 1600 Nasal 2.0L Cannula 01/11 1454 97.4 69 20 140/62 92 Intake & Output 01/12 1600 01/12 0800 01/12 0000 Intake Total 0 500 Output Total Balance 0 500 Intake, IV 0 Intake, Oral 0 500 Number 0 Bowel Movements Physical Exam General Appearance: Alert, Oriented X3, Cooperative, No Acute Distress Other Physical Findings: General -well-developed, well-nourished elderly man in no acute distress HEENT - NCAT, PERRL, EOMI, anicteric sclera, nasal cannula in place CVS - S1, S2 w/o m/g/r Resp -diminished airflow with scattered rhonchi and wheezing, no crackles GI - Soft, nontender, nondistended, bowel sounds intact Neuro - Awake and alert, CN II - XII grossly inact Ext - normal pulses, no cyanosis/clubbing/edema Current Medications: Current Medications Sig/Toby Start time Last Medication Dose Route Stop Time Status Admin Acetaminophen 650 MG Q6P PRN 01/09 2200 AC PO Albuterol Sulfate 3 ML TID 01/10 1600 AC 01/12 INH 1218 Aspirin 81 MG DAILY 01/10 1000 AC 01/12 PO 1030 Atorvastatin Calcium 10 MG 1700 01/10 1700 AC 01/11 PO 1719 Carvedilol 25 MG BID 01/10 0016 AC 01/12 PO 1030 Digoxin 0.125 MG DAILY 01/10 1000 AC 01/12 PO 1030 Dofetilide 250 MCG BID 01/10 0015 AC 01/12 PO 1029 Furosemide 20 MG DAILY 01/10 1000 AC 01/12 PO 1030 Guaifenesin 600 MG Q12 01/09 2201 AC 01/12 PO 1030 Ketorolac 15 MG Q6P PRN 01/09 2200 AC Tromethamine IV Lisinopril 20 MG BID 01/10 1000 AC 01/12 PO 1030 Methylprednisolone 40 MG DAILY 01/12 1000 AC 01/12 IV 01/12 2300 1025 Methylprednisolone 40 MG BID 01/11 1000 DC 01/11 IV 01/11 2300 2217 Patient Medication 1 ED .STK-MED ONE 01/11 1409 [place] Teaching ED 01/11 1410 Spironolactone 12.5 MG DAILY 01/10 1000 AC 01/12 PO 1030 Last 24 Hrs of Lab/Yusuf Results Last 24 Hrs of Labs/Mics: Laboratory Tests 01/12/17 0645: PT 35.8 H, INR 3.45 H, CBC w Diff NO MAN DIFF REQ, RBC 4.59 L, MCV 82.3, MCH 26.8 L, RDW 14.0, MPV 7.9, Gran % 78.7 H, Lymphocytes % 18.5 L, Monocytes % 2.5, Eosinophils % 0.2, Basophils % 0.1, Absolute Granulocytes 4.3, Absolute Lymphocytes 1.0 L, Absolute Monocytes 0.1 L, Absolute Eosinophils 0, Absolute Basophils 0, PUBS MCHC 32.5 L Assessment/Plan Assessment: Patient continues to do well while maintained on intravenous steroids. He is still requiring supplemental oxygen via nasal cannula. INR remains supratherapeutic, Coumadin is held today. He also admits to persistent cough. Patient was previously scheduled for an outpatient CT scan of the abdomen to further assess for his known abdominal aortic aneurysm at 9 AM tomorrow morning. Per recommendations of Dr. Egan patient will have his exam prior to discharge. Problem list: -Bronchitis -Supratherapeutic INR -History of atrial fibrillation -Abdominal aortic aneurysm -History of congestive heart failure -Nonischemic cardiomyopathy status post AICD/PM Plan: -General medicine -TRC with albuterol/ipratropium when necessary -Supplemental oxygen, goal >92%, wean as tolerated -Solu-Medrol 40 mg IV daily -Continue home medications -Follow daily INR, dose Coumadin accordingly -CT abdomen/pelvis tomorrow morning discharge -DVT prophylaxis -Full code Problem List: 1. Bronchitis Pain Ratin Pain Location: None Pain Goal: Remain pain free Pain Plan: As noted in plan Tomorrow's Labs & Rationales: None
[2017-01-12 08:56] LABS: PLATELET COUNT 256 /CUMM (130-400); WHITE BLOOD CELL COUNT 5.5 /CUMM (4.8-10.8)
--- NOTE | 2017-01-12 09:27 | PN- Att Addend ---
Attending Addendum Attending Brief Note Covering attending note. Patient still has r some cough and congestion and wheezing. Is having some abdominal discomfort history of recent repair of aneurysm of the aorta patient is scheduled to get a CT scan of the abdomen. Current Medications Sig/Toby Start time Last Medication Dose Route Stop Time Status Admin Acetaminophen 650 MG Q6P PRN 01/09 2200 AC PO Albuterol Sulfate 3 ML TID 01/10 1600 AC 01/12 INH 0844 Aspirin 81 MG DAILY 01/10 1000 AC 01/11 PO 0934 Atorvastatin Calcium 10 MG 1700 01/10 1700 AC 01/11 PO 1719 Carvedilol 25 MG BID 01/10 0016 AC 01/11 PO 2217 Digoxin 0.125 MG DAILY 01/10 1000 AC 01/11 PO 0934 Dofetilide 250 MCG BID 01/10 0015 AC 01/11 PO 2217 Furosemide 20 MG DAILY 01/10 1000 AC 01/11 PO 0934 Guaifenesin 600 MG Q12 01/09 2201 AC 01/11 PO 2217 Ketorolac 15 MG Q6P PRN 01/09 2200 AC Tromethamine IV Lisinopril 20 MG BID 01/10 1000 AC 01/11 PO 2217 Methylprednisolone 40 MG DAILY 01/12 1000 AC IV 01/12 2300 Methylprednisolone 40 MG BID 01/11 1000 DC 01/11 IV 01/11 2300 2217 Patient Medication 1 ED .STK-MED ONE 01/11 1409 [place] Teaching ED 01/11 1410 Spironolactone 12.5 MG DAILY 01/10 1000 AC 01/11 PO 0933 Vital Signs Date Time Temp Pulse Resp B/P Pulse O2 O2 Flow FiO2 Ox Delivery Rate 01/12 0844 97 Nasal 1.0L Cannula 01/12 0639 97.2 73 20 134/68 96 Nasal 2.0L Cannula 01/12 0156 95 Nasal 1.0L Cannula 01/117 70 170/98 01/11 2217 98 170/98 01/11 2215 96.5 74 20 170/90 95 Nasal 1.0L Cannula 01/11 2050 98 Nasal 2.0L Cannula 01/11 1600 Nasal 2.0L Cannula 01/11 1454 97.4 69 20 140/62 92 01/11 0934 70 150/78 01/11 0934 70 150/78 01/11 0934 70 150/78 Intake & Output 01/12 1600 01/12 0800 01/12 0000 Intake Total 0 500 Output Total Balance 0 500 Intake, IV 0 Intake, Oral 0 500 Number 0 Bowel Movements On examination patient is awake alert comfortable on oxygen. Neck is supple S1-S2 is normal Lungs shows expiratory wheezing with the exception prolonged. Abdomen is soft nontender bowel sounds are present pedal pulses 1+ bilateral. Laboratory Tests 01/12 0645 Coagulation PT (9.4 - 12.5 SEC) 35.8 H INR (0.90 - 1.17) 3.45 H Hematology CBC w Diff NO MAN DIFF REQ WBC (4.8 - 10.8 /CUMM) 5.5 RBC (4.70 - 6.10 /CUMM) 4.59 L Hgb (14.0 - 18.0 G/DL) 12.3 L Hct (42 - 52 %) 37.8 L MCV (80.0 - 94.0 FL) 82.3 MCH (27.0 - 31.0 PG) 26.8 L RDW (11.5 - 14.5 %) 14.0 Plt Count (130 - 400 /CUMM) 256 MPV (7.4 - 10.4 FL) 7.9 Gran % (42.2 - 75.2 %) 78.7 H Lymphocytes % (20.5 - 51.1 %) 18.5 L Monocytes % (1.7 - 9.3 %) 2.5 Eosinophils % (0 - 5 %) 0.2 Basophils % (0.0 - 2.0 %) 0.1 Absolute Granulocytes (1.4 - 6.5 /CUMM) 4.3 Absolute Lymphocytes (1.2 - 3.4 /CUMM) 1.0 L Absolute Monocytes (0.10 - 0.60 /CUMM) 0.1 L Absolute Eosinophils (0.0 - 0.7 /CUMM) 0 Absolute Basophils (0.0 - 0.2 /CUMM) 0 PUBS MCHC (33.0 - 37.0 G/DL) 32.5 L Plan is Continue with oxygen and also TRC nebulizer Started on Solu-Medrol 40 mg twice a day Patient is scheduled to get a CT scan of the abdomen tomorrow.
[2017-01-12 14:08] VITALS: BP 120/72
[2017-01-12 22:26] VITALS: BP 130/80
[2017-01-13 07:03] VITALS: BP 126/70
--- NOTE | 2017-01-13 08:26 | PN- Housestaff ---
Subjective Follow-up For: Bronchitis Supratherapeutic INR Atrial fibrillation Subjective: Patient was seen and examined today, he continued to complain of cough, he is on nasal cannula 1 L saturating well 96%. Vital signs are stable, no overnight events reported by the nurse of the patient. Review of Systems Constitutional: Reports: see HPI. Objective Last 24 Hrs of Vital Signs/I&O Vital Signs Date Time Temp Pulse Resp B/P Pulse O2 O2 Flow FiO2 Ox Delivery Rate 01/13 1600 Nasal 1.0L Cannula 01/13 1457 97.6 70 20 110/60 95 01/13 1325 96 Nasal 1.0L Cannula 01/13 1005 70 150/80 01/13 1004 70 150/80 01/13 1004 70 150/80 01/13 0800 97 Nasal 1.0L Cannula 01/13 0703 97.4 77 20 126/70 97 Nasal Cannula 01/13 0647 96 Nasal 2.0L Cannula 01/13 0000 92 Nasal 1.0L Cannula 01/12 2226 97.4 68 20 130/80 92 Nasal Cannula 01/12 2055 130/80 01/12 2055 130/80 01/12 205 96 Nasal 1.0L Cannula Intake & Output 01/13 1600 01/13 0800 01/13 0000 Intake Total 450 0 600 Output Total Balance 450 0 600 Intake, IV 0 Intake, Oral 450 0 600 Number 0 Bowel Movements Physical Exam General Appearance: Alert, Oriented X3, Cooperative, No Acute Distress Skin: No Rashes, No Breakdown, No Significant Lesion HEENT: Atraumatic, PERRLA, EOMI, Mucous Membr. moist/pink Neck: Supple, No JVD Cardiovascular: Regular Rate, Normal S1, Normal S2, No Murmurs Lungs: bilateral decreased air entry, right side wheeze, diffuse rhonchi Abdomen: Normal Bowel Sounds, Soft, No Tenderness Neurological: Normal Gait, Normal Speech, Strength at 5/5 X4 Ext, Normal Tone, Sensation Intact, Cranial Nerves 3-12 NL, Reflexes 2+ Extremities: No Clubbing, No Cyanosis, No Edema, Normal Pulses Assessment/Plan Assessment: Assessment: This is a 71-year-old male with significant cardiac history including nonischemic cardiomyopathy, with a defibrillator and pacemaker, triple a with endovascular aneurysm repair in September 2016, who presents with chief complaint of shortness of breath. At [employer] [facility] in ED patient had O2 sat of 89. Given his history of CHF and intubation in 2008 patient was admitted for further workup of shortness of breath. plan: Bronchitis * Con't O2 via nasal cannula * TRC nebs * Continue Solu-Medrol 40 mg twice a day * Continue off antibiotics * Will obtain pulmonology consultation * Although patient continue to have cough with persistent shortness of breath * Patient had scheduled CTA abdomen and pelvis as an outpatient, study was obtained as an inpatient Supra-therapeutic INR: Patient has history of A. fib on Coumadin. * INR 2.29 * Will dose Coumadin 3 mg today * INR tomorrow and will dose accordingly Cardiomyopathy, A. fib, hypercholesterolemia, CHF : Chronic and stable * Continue Tikosyn 250 g twice a day * Continue Carvedilol 2.5 twice a day * Continue Lisinopril 20 mg twice a day * Continue 10 you Furosemide 20 mg * Continue Digoxin 0.125 * Continue Lovastatin 40 mg * Continue Spironolactone 12.5 mg * HOLD! Coumadin 7.5 Full code Heart healthy diet DVT prophylaxis mechanical Problem List: 1. Bronchitis 2. Elevated INR Pain Ratin Pain Location: None Pain Goal: Pain 4 or less Pain Plan: Mild pain pathway Tomorrow's Labs & Rationales: INR
--- NOTE | 2017-01-13 09:18 | PN- Att Addend ---
Attending Addendum Attending Brief Note Attending note. Overall patient is fairly stable but is still got a lot of coughing and wheezing and congestion. Current Medications Sig/Toby Start time Last Medication Dose Route Stop Time Status Admin Acetaminophen 650 MG Q6P PRN 01/09 2200 AC PO Albuterol Sulfate 3 ML TID 01/10 1600 AC 01/13 INH 0637 Aspirin 81 MG DAILY 01/10 1000 AC 01/12 PO 1030 Atorvastatin Calcium 10 MG 1700 01/10 1700 AC 01/12 PO 1549 Carvedilol 25 MG BID 01/10 0016 AC 01/12 PO 205 Digoxin 0.125 MG DAILY 01/10 1000 AC 01/12 PO 1030 Dofetilide 250 MCG BID 01/10 0015 AC 01/12 PO 205 Furosemide 20 MG DAILY 01/10 1000 AC 01/12 PO 1030 Guaifenesin 600 MG Q12 01/09 2201 AC 01/12 PO 205 Ketorolac 15 MG Q6P PRN 01/09 2200 AC Tromethamine IV Lisinopril 20 MG BID 01/10 1000 AC 01/12 PO 205 Methylprednisolone 40 MG BID 01/12 2200 AC 01/12 IV 205 Methylprednisolone 40 MG DAILY 01/12 1000 DC 01/12 IV 01/12 2300 1025 Spironolactone 12.5 MG DAILY 01/10 1000 AC 01/12 PO 1030 Vital Signs Date Time Temp Pulse Resp B/P Pulse O2 O2 Flow FiO2 Ox Delivery Rate 01/13 08 97 Nasal 1.0L Cannula 01/13 0703 97.4 77 20 126/70 97 Nasal Cannula 01/13 0647 96 Nasal 2.0L Cannula 01/13 0000 92 Nasal 1.0L Cannula 01/126 97.4 68 20 130/80 92 Nasal Cannula 01/12 2055 130/80 01/12 2055 130/80 01/12 2054 96 Nasal 1.0L Cannula 01/12 1600 Nasal 1.0L Cannula 01/12 1408 98.1 79 20 120/72 93 01/12 1030 88 110/70 01/12 1030 88 110/70 01/12 1030 88 110/70 Intake & Output 01/13 1600 01/13 0800 01/13 0000 Intake Total 600 Output Total Balance 600 Intake, Oral 600 On examination Patient is awake alert oriented 3. Neck is supple JVD is not raised no carotid bruit present. S1-S2 is normal Lungs shows diffuse expiratory wheezing with scattered rhonchi. Abdomen is soft nontender bowel sounds are present 01/13 0830 Chemistry Sodium Pending Potassium Pending Chloride Pending Carbon Dioxide Pending Anion Gap Pending BUN Pending Creatinine Pending BUN/Creatinine Ratio Pending Assessment. Exacerbation of COPD Continue with the respiratory treatments Patient is still scheduled to get a CT scan of the chest Obtained a pulmonary consult.
--- NOTE | 2017-01-13 12:36 | CT SCAN REPORT ---
EXAMINATION: CT ANGIOGRAM ABDOMEN AND PELVIS CLINICAL INFORMATION: None abdominal aortic aneurysm. Evaluate for worsening disease. Post endovascular aneurysm repair September 2016 COMPARISON: Previous noncontrast CT of the abdomen and pelvis August 2016 TECHNIQUE: Multiple axial images were obtained through the abdomen and pelvis following the administration of 100 mL of Optiray 320 intravenous contrast. Images were reviewed on a dedicated 3-D workstation. DLP: 1046 mGy-cm FINDINGS: There is a new aorto biiliac stent graft. The stent begins in the infrarenal abdominal aorta and extends into the bilateral common iliac arteries. There is embolization of the right internal iliac artery. There is a lower abdominal and right common iliac artery aneurysm. Lower abdominal aneurysm does not appear appreciably changed in size. Distal abdominal aortic aneurysm measures maximum 5.4 x 7.7 cm AP and transverse dimension axial image 44 series 7 compared to 5.5 x 7.7 cm axial image 40 series 2 and August 2016 exam. This appears similar in shape. There may be slight interval increase in the right common iliac artery aneurysm measuring 5.9 x 6.2 cm axial image 47 series 7 compared to 5.7 x 6 cm on previous exam. Ectatic or or small aneurysm measures 2 x 2.5 cm and does not appear appreciably changed. There is a small type I A endoleak along the anterior proximal margin of the stent graft. This area measures 1.2 x 1.2 cm in AP and transverse dimension axial image 244 series 5 and 1.6 cm in longitudinal dimension, coronal reconstructed image 49. There is early contrast seen in the IVC. This is greatest in the intrahepatic IVC and hepatic veins and probably represents backflow from the hard from increased right heart pressure. The thoracic aorta is normal in caliber. The suprarenal abdominal aorta is normal in caliber. The celiac axis and SMA are patent. There are single patent renal arteries. The external iliac and common femoral arteries are patent and normal in caliber. The left internal iliac artery is patent. The lung bases are clear. The heart is enlarged. The liver is prominent. No evidence of cirrhosis is seen. There is a 1 cm low-attenuation area in the medial segment of the left lobe axial image 15 series 7 There is a 1.5 cm low-attenuation lesion in the posterior segment of the right lobe axial image 37 series 7. This demonstrates peripheral puddling enhancement and may represent a small hemangioma. There is a second 6 mm low-attenuation lesion in the posterior segment of the right lobe axial image 30 series 7. This is difficult to characterize due to small size but may represent a cyst. There are gallstones in the gallbladder. The spleen is normal. The pancreas is normal. The adrenal glands are normal. There is left hydronephrosis. The left ureter does not appear dilated and this may represent a left UPJ obstruction. There is a 2 cm cyst exophytic to the upper pole of the left kidney that is unchanged. The right kidney is normal. The prostate gland is enlarged and protrudes into the base of the bladder. There is a large left-sided bladder diverticulum. There is evidence of diverticulosis. No evidence of diverticulitis or colitis is seen. There are loops of small bowel seen superior and anterior to the transverse colon and left lobe of the liver. Appearance is questionable for possible internal hernia. There is no evidence of obstruction. There is evidence of previous right inguinal hernia repair. No ascites or adenopathy is seen. There is severe degenerative change of the spine. IMPRESSION: New aorto biiliac stent graft. There is a small type I A endoleak adjacent to the anterior aspect of the proximal end of the stent graft. There is no appreciable change in the distal abdominal aortic aneurysm size. There may be slight interval increase in size in the right common iliac artery aneurysm. There is early contrast filling of the IVC. This is greatest in the intrahepatic IVC and hepatic veins and therefore likely represents reflux of contrast from the heart due to elevated right heart pressures. There are several low-attenuation liver lesions. These are not seen on previous noncontrast enhanced exam and cannot be compared. These could be evaluated with liver MRI if clinically indicated. Gallstones. Left hydronephrosis. The left ureter does not appear dilated a represent a left UPJ obstruction. Stable left renal cyst. Enlarged prostate gland. Left-sided bladder diverticulum. Diverticulosis. Small bowel is seen anterior and superior to the transverse colon and left lobe of the liver, and internal hernia should be considered. No evidence of obstruction.
[2017-01-13 14:57] VITALS: BP 110/60
[2017-01-13 17:41] LABS: PT 23.9 SEC (9.4-12.5)
[2017-01-13 21:02] VITALS: BP 125/70
[2017-01-14 06:53] VITALS: BP 146/70
--- NOTE | 2017-01-14 07:34 | PN- Housestaff ---
Subjective Follow-up For: Bronchitis Supratherapeutic INR Atrial fibrillation Subjective: Patient was seen and examined this morning, vital signs are stable, patient remained afebrile, continued to have productive cough, no more shortness of breath patient saturated well on room air. No overnight events reported by the nurse of the patient. No new complaint. Review of Systems Constitutional: Reports: see HPI. Objective Last 24 Hrs of Vital Signs/I&O Vital Signs Date Time Temp Pulse Resp B/P Pulse O2 O2 Flow FiO2 Ox Delivery Rate 01/14 1600 Nasal 1.0L Cannula 01/14 1443 98.4 71 20 118/62 92 01/14 0958 69 120/60 01/14 0958 69 120/60 01/14 0958 69 120/60 01/14 0903 96 Nasal 1.0L Cannula 01/14 0800 95 Nasal 1.0L Cannula 01/14 0653 97.5 77 19 146/70 96 Nasal Cannula 01/14 0000 Nasal 1.0L Cannula 01/13 2102 97.9 84 19 125/70 94 03 2041 130/78 01/13 2004 97 Nasal 1.0L Cannula Intake & Output 01/14 1600 01/14 0800 01/14 0000 Intake Total 480 200 800 Output Total Balance 480 200 800 Intake, Oral 480 200 800 Patient 81.647 kg Weight Physical Exam General Appearance: Alert, Oriented X3, Cooperative, No Acute Distress Skin: No Rashes, No Breakdown, No Significant Lesion HEENT: Atraumatic, PERRLA, EOMI, Mucous Membr. moist/pink Neck: Supple, No JVD Cardiovascular: Normal S1, Normal S2, No Murmurs, irregular irregular Lungs: decrease air entry bilateral, diffuse wheeze and rhonchi Abdomen: Normal Bowel Sounds, Soft, No Tenderness Neurological: Normal Gait, Normal Speech, Strength at 5/5 X4 Ext, Normal Tone, Sensation Intact, Cranial Nerves 3-12 NL, Reflexes 2+ Extremities: No Clubbing, No Cyanosis, No Edema, Normal Pulses Assessment/Plan Assessment: Assessment: This is a 71-year-old male with significant cardiac history including nonischemic cardiomyopathy, with a defibrillator and pacemaker, triple a with endovascular aneurysm repair in September 2016, who presents with chief complaint of shortness of breath. At [facility] in ED patient had O2 sat of 89. Given his history of CHF and intubation in 2008 patient was admitted for further workup of shortness of breath. plan: COPD exacerbation * Patient is saturating well on 1 L oxygen * Titrate oxygen as tolerated, maintain saturation more than 92% * TRC nebs * Continue Solu-Medrol 40 mg twice a day * Continue off antibiotics * Pulmonary consultation was obtained, thanks for recommendation * Symbicort inhaler, patient is on Tikosyn antiarrhythmic that has interaction with Symbicort class DIV QT prolongation and torsade, will avoid for now * Recommendation for outpatient pulmonary function test * Patient will be instructed to follow up with Dr. Jose 1-2 weeks after discharge * Albuterol upon discharge * Will obtain echo and ProBNP Supra-therapeutic INR: Patient has history of A. fib on Coumadin. * INR 1.94 * Will dose Coumadin 7.5 mg today * INR tomorrow and will dose accordingly Cardiomyopathy, A. fib, hypercholesterolemia, CHF : Chronic and stable * Continue Tikosyn 250 g twice a day * Continue Carvedilol 2.5 twice a day * Continue Lisinopril 20 mg twice a day * Continue 10 you Furosemide 20 mg * Continue Digoxin 0.125 * Continue Lovastatin 40 mg * Continue Spironolactone 12.5 mg Full code Heart healthy diet DVT prophylaxis mechanical and Coumadin Consultation pulmonology Problem List: 1. COPD suggested by initial evaluation 2. Elevated INR Pain Ratin Pain Location: None Pain Goal: Pain 4 or less Pain Plan: Mild pain pathway Tomorrow's Labs & Rationales: INR
[2017-01-14 08:24] LABS: PT 20.2 SEC (9.4-12.5)
--- NOTE | 2017-01-14 10:36 | NUR ---
ATTEMPTED TO TAPER O2, ON RA PATIENT IS 88% AT REST, REPLACED 1 L NC AND O2 SAT UP TO 90% WILL CONTINUE TO MONITOR.
--- NOTE | 2017-01-14 11:33 | Cons- Pulmonary ---
ELIZABETH RAMOS 01/14/17 1131: General Information and HPI Consulting Request Date of Consult: 01/14/17 Reason for Consult: Bronchitis Source of Information: patient, old records Exam Limitations: no limitations History of Present Illness: This is a 71-year-old man presneted w/ chief complaint of shortness of breath. His past medical history is significant for child-donald asthma not on medication, CHF S/P hospitalization and intubation for apnea in 2008, nonischemic cardiomyopathy with reduced EF (20-30%?) and defibrillator, pacemaker in place, A. fib on Coumadin, RA and BPH. Patient states that he has had increased trouble breathing in the past 3 or 4 days. Patient also endorses cough with whitish sputum and congestion/coryza. His shortness of breath progressively worsened and limited his daily physical activity capacity. Normally he is able to ambulate up a flight of stairs with no difficulty, however today he felt short of breath even sitting down. Denies any fever, nausea, vomiting, chest pain, palpitations , dizziness, increased orthopnea, increase in weight and peripheral sweling. He has sick contact in ex- with whom he is co-habitating. Additionally denies any recent travel. He received his pneumonia and flu vaccine this year. In the ED he was hypoxic down to 93-94% and started on 2 lit of O2. Of Note, pt has significant surgical history including a triple a repair in September 2016, pacemaker placement, defibrillator, tonsils, carpal tunnel 2, cardiac cath, and hernia with mesh repair. Patient denies any alcohol, drugs. Former smoker ( 3 PPD X40 ) quit. 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 He had some unprotected industrial dust/ pain exposure. Leaves in an old house that is isolated with Asbestosis-based material. Allergies/Medications Allergies: Coded Allergies: morphine (Intermediate, ITCHING 12/27/15) Home Med List: Aspirin (Children's Aspirin) 81 MG TAB.CHEW 1 TAB PO DAILY HEART/BLOOD ( Reported) Carvedilol (Coreg) 25 MG TABLET 1 TAB PO BID BP (Reported) Digoxin 125 MCG TABLET 1 TAB PO DAILY HEART (Reported) Dofetilide (Tikosyn) 250 MCG CAPSULE 1 CAP PO BID HEART (Reported) Furosemide 20 MG TABLET 1 TAB PO DAILY FLUID (Reported) Lisinopril 20 MG TABLET 1 TAB PO BID BP (Reported) Lovastatin 40 MG TABLET 1 TAB PO DAILY CHOLESTEROL (Reported) with food Oxycodone HCl/Acetaminophen (Percocet 5-325 MG Tablet) 5 MG-325 MG TABLET 1 TAB PO Q4-6 PRN PAIN Spironolactone (Aldactone) 25 MG TABLET 12.5 MG PO DAILY CHF (Reported) Warfarin Sodium (Coumadin) 7.5 MG TABLET 1 TAB PO DAILY BLOOD THINNER ( Reported) Current Medications: Current Medications Sig/Toby Start time Last Medication Dose Route Stop Time Status Admin Acetaminophen 650 MG Q6P PRN 01/09 2200 AC PO Albuterol Sulfate 3 ML TID 01/10 1600 AC 01/14 INH 1241 Aspirin 81 MG DAILY 01/10 1000 AC 01/14 PO 1204 Atorvastatin Calcium 10 MG 1700 01/10 1700 AC 01/13 PO 1618 Carvedilol 25 MG BID 01/10 0016 AC 01/14 PO 0958 Digoxin 0.125 MG DAILY 01/10 1000 AC 01/14 PO 0958 Dofetilide 250 MCG BID 01/10 0015 AC 01/14 PO 0958 Furosemide 20 MG DAILY 01/10 1000 AC 01/14 PO 0958 Guaifenesin 600 MG Q12 01/09 2201 AC 01/14 PO 0958 Ketorolac 15 MG Q6P PRN 01/09 2200 AC Tromethamine IV Lisinopril 20 MG BID 01/10 1000 AC 01/14 PO 0958 Methylprednisolone 40 MG BID 01/12 2200 AC 01/14 IV 0959 Patient Medication 1 UNIT ONE NR 01/13 1815 DC Teaching ED 01/13 1830 Spironolactone 12.5 MG DAILY 01/10 1000 AC 01/14 PO 0959 Warfarin Sodium 3 MG .STK-MED ONE 01/13 1929 DC PO 01/13 1930 Warfarin Sodium 3 MG COUMADIN 1700 ONE 01/13 1815 DC 01/13 PO 01/13 Review of Systems Review of Systems Constitutional: Reports: see HPI, diaphoresis, malaise. Denies: chills, fever, weakness, unexplained weight loss. EENTM: Reports: see HPI. Cardiovascular: Reports: see HPI. Denies: chest pain, edema, orthopena, palpitations, peripheral edema, syncope. Respiratory: Reports: see HPI, cough, short of breath, wheezing. Denies: hemoptysis, orthopnea, sputum production, stridor. GI: Reports: see HPI. Genitourinary: Reports: no symptoms. Musculoskeletal: Reports: no symptoms. Skin: Reports: no symptoms. Neurological/Psychological: Reports: no symptoms. Hematologic/Endocrine: Reports: no symptoms. Immunologic/Allergic: Reports: no symptoms. All Other Systems: Reviewed and Negative Past History Travel History Traveled to [place] past 21 day No Medical History Blood Transfusion Hx: No Neurological: NONE EENT: NONE Cardiovascular: CHF, hypertension Respiratory: asthma Gastrointestinal: NONE Hepatic: NONE Renal: NONE Musculoskeletal: ARTHRITIS Psychiatric: NONE Endocrine: BORDERLINE DM Blood Disorders: NONE Cancer(s): NONE CASE MANAGERS/Reproductive: NONE Surgical History Surgical History: hernia surgery AAA repair in September 2016. Cardiac cath, hernia repair with mesh, carpal tunnel bilaterally, tonsils, pacemaker, defibrillator, Family History Relations & Conditions If Any: Relation not specified for: *No pertinent family history Psychosocial History Where Do You Live? Home Who Do You Live With? ex- Services at Home: None Primary Language: [place] Smoking Status: Former Smoker ETOH Use: denies use Illicit Drug Use: denies illicit drug use Functional Ability ADLs Independent: dressing, eating, toileting, bathing. Ambulation: independent IADLs Independent: shopping, housework, finances, food prep, telephone, transportation , medication admin. Employment History Employment: Retired Exam & Diagnostic Data Last 24 Hrs of Vital Signs/I&O Vital Signs Date Time Temp Pulse Resp B/P Pulse O2 O2 Flow FiO2 Ox Delivery Rate 01/14 0958 69 120/60 01/14 0958 69 120/60 01/14 0958 69 120/60 01/14 0903 96 Nasal 1.0L Cannula 01/14 0800 95 Nasal 1.0L Cannula 01/14 0653 97.5 77 19 146/70 96 Nasal Cannula 01/14 0000 Nasal 1.0L Cannula 01/13 2102 97.9 84 19 125/70 94 01/13 2041 130/78 01/13 2004 97 Nasal 1.0L Cannula 01/13 1600 Nasal 1.0L Cannula 01/13 1457 97.6 70 20 110/60 95 01/13 1325 96 Nasal 1.0L Cannula Intake & Output 01/14 1600 01/14 0800 01/14 0000 Intake Total 200 800 Output Total Balance 200 800 Intake, Oral 200 800 Patient 180 lb Weight Physical Exam General Appearance: well developed/nourished, alert, awake, mild distress Head: atraumatic, normal appearance Eyes: Bilateral: normal appearance, PERRL, EOMI. Ears, Nose, Throat: normal pharynx, normal ENT inspection Neck: normal inspection, supple, full range of motion Respiratory: chest non-tender, wheezing, respiratory distress Cardiovascular: systolic murmur, irregularly irregular Gastrointestinal: normal bowel sounds Rectal: deferred Extremities: no edema Neurologic/Psych: awake, alert, oriented x 3 Cranial Nerves: normal speech, PERRL Skin: diaphoresis Reproductive: Normal male genitalia Last 48 Hrs of Labs/Yusuf: Laboratory Tests 01/14/17 0732: PT 20.2 H, INR 1.94 H 01/13/17 1600: PT 23.9 H, INR 2.29 H 01/13/17 0830: Anion Gap 9, Estimated GFR > 60, BUN/Creatinine Ratio 26.3 H, Loy-B-Tqjowkgpvuq Pept 3080 H Assessment/Plan Impression/Plan: 71-year-old man with significant past medical history and comorbidities was admitted for bronchitis. Pertinent Data Vital signs: Stable, O2 saturation 96% 1 L nasal cannula WBC 5.5 with left shift no bandemia, MCV 82.3, hemoglobin 12.3, hematocrit 37.8 BUN 21 creatinine 0.8, B and creatinine ratio 26.3 ProBNP 3080 CXR: No acute pathology Abdomen and pelvis CTA: There is a second 6 mm low-attenuation lesion in the posterior segment of the right lobe axial image 30 series 7. This is difficult to characterize due to small size but may represent a cyst. There are gallstones in the gallbladder. No liver Cirrhosis. List of Problems Acute hypoxic Resp failure: He is ambulatory at his baseline w/ home O2. In the ED desaturated to 89%. Patient does have history of CHF, childhood asthma, and presents with chief complaint of 3-4 days of difficulty breathing, which was preceded by an URI symptoms. He is a former heavy smoker, w/o diagnosis of COPD not on INH nor on home O2, He subsequently improved with nasal cannula and 2 Neb treatments. This presentation is most possibly is an acute exacerbation of his underlying COPD in the setting of acute viral bronchitis. He has a HFrEF, which does not seem to be actively contributes to his condition, however. His chest x- ray is clear of any vascular congestion and he denies any chest pain, and has no overt signs of volume overload including lower extremity edema however his proBNP is almost doubled up compared to his previous admission on Oct 2011, which could be related to demand ischemia. * TRC nebs Q4 as needed * Albuterol INH 3 ML Q4 * Iprotropium [place] 2.5 Ml Q4 * Symbicort 2 Puffs BID rinse mouth after use * Start on 5 days of PO Azithromycin 250 mg reji * Continue IV Solumedrol 40 mg BID * Follow Flu swab results and treat if positive w/ Tamiflu * Keep Nasal Canula O2 Supplement for O2 Sat 92-93% * Obtain and ABG * Daily weight * Obtain Echo * Repeat CXR * maintaine negative fluid balance * Questionable cyst/lesion in the lungs, which was highlighted in Abd/pelvic CTA. Follow up as an outpatient for PFT and low dose lung cancer screening. A.Fib on coumadin; w/ supratherpeutic INR * manage per medical team Cardiomyopathy and HFrEF: elevated ProBNP * obtain Echo * Continue Tikosyn 250 g twice a day * Continue Carvedilol 2.5 twice a day * Continue Lisinopril 20 mg twice a day * Continue 10 you Furosemide 20 mg * Continue Digoxin 0.125 * Continue Lovastatin 40 mg * Continue Spironolactone 12.5 mg FC Problem List: 1. Elevated INR 2. Bronchitis 3. COPD suggested by initial evaluation Consult Acknowledgment - Thank you for your consult request. SANJEEV VILLASENOR MD 01/14/17 1159: General Information and HPI Consulting Request Requested By: Dr. Del Cid Review of Systems Comments 18 point Review of Systems performed. Positive and negative pertinent findings are deliniated in the HPI. Otherwise the ROS is negative. Assessment/Plan Other Findings/Comments: Sanjeev Gonzalez M.D. have examined this patient, reviewed available EMR data, personally reviewed images, discussed with resident/PA/WOMEN DESIGNER, discussed management plan with housestaff and nursing staff, discussed managment plan all of healthcare providers, discussed management plan with patient and/or family, agreed with resident/PA/WOMEN DESIGNER. The past history and parts of the chart have been autopopulated. Impression 71 year old man -COPD exacerbation secondary to bronchitis Plan -cont solumedrol at current dose -trc/nebs -symbicort has a reaction with tikosyn, will avoid for now -pfts as outpt -will require follow up within 1-2 wks of discharge -albuterol should be rx upon dc - proair -ECHO Consult Acknowledgment - Thank you for your consult request.
--- NOTE | 2017-01-14 13:40 | PN- Att Addend ---
Attending Addendum Attending Brief Note Patient still a little short of breath and a little wheezy, his oxygen is on still on IV steroids and respiratory therapy appreciate pulmonary's input and recommendations will check with pulmonary to see when the patient can go on by mouth steroids and after that we can start disposition plans admit the patient out of bed with physical therapy evaluation. 24 TOTALS 01/14 0000 01/13 0000 Intake Total 1250 1300 Output Total Balance 1250 1300 Intake, IV 0 0 Intake, Oral 1250 1300 Number 0 0 Bowel Movements Current Medications Sig/Toby Start time Last Medication Dose Route Stop Time Status Admin Acetaminophen 650 MG Q6P PRN 01/09 2200 AC PO Albuterol Sulfate 3 ML TID 01/10 1600 AC 01/14 INH 1241 Aspirin 81 MG DAILY 01/10 1000 AC 01/14 PO 1204 Atorvastatin Calcium 10 MG 1700 01/10 1700 AC 01/13 PO 1618 Budesonide/ 2 PUF BID 01/14 1308 UNVr Formoterol Fumarate INH Carvedilol 25 MG BID 01/10 0016 AC 01/14 PO 0958 Digoxin 0.125 MG DAILY 01/10 1000 AC 01/14 PO 0958 Dofetilide 250 MCG BID 01/10 0015 AC 01/14 PO 0958 Furosemide 20 MG DAILY 01/10 1000 AC 01/14 PO 0958 Guaifenesin 600 MG Q12 01/09 2201 AC 01/14 PO 0958 Ketorolac 15 MG Q6P PRN 01/09 2200 AC Tromethamine IV Lisinopril 20 MG BID 01/10 1000 AC 01/14 PO 0958 Methylprednisolone 40 MG BID 01/12 2200 AC 01/14 IV 0959 Patient Medication 1 ED .STK-MED ONE 01/14 1337 [place] Teaching ED 01/14 1338 Patient Medication 1 UNIT ONE NR 01/13 1815 NJ Teaching ED 01/13 1830 Spironolactone 12.5 MG DAILY 01/10 1000 AC 01/14 PO 0959 Warfarin Sodium 7.5 MG COUMADIN 1700 ONE 01/14 1700 AC PO 01/14 1701 Warfarin Sodium 3 MG .STK-MED ONE 01/13 1929 DC PO 01/13 1930 Warfarin Sodium 3 MG COUMADIN 1700 ONE 01/13 1815 DC 01/13 PO 01/14 1816 193 Laboratory Tests 01/14/17 0732: PT 20.2 H, INR 1.94 H 01/13/17 1600: PT 23.9 H, INR 2.29 H 01/13/17 0830: Anion Gap 9, Estimated GFR > 60, BUN/Creatinine Ratio 26.3 H, Kat-M-Yovrohtliyk Pept 3080 H
[2017-01-14 14:43] VITALS: BP 118/62
[2017-01-14 21:54] VITALS: BP 140/70
[2017-01-15 06:24] VITALS: BP 120/90
--- NOTE | 2017-01-15 07:21 | PN- Housestaff ---
See Addendum Subjective Follow-up For: -COPD exacerbation Subjective: She was seen and examined today, he continues to have congested chest with productive cough, denied fever, chills. Patient denied chest pain, palpitation. Vital signs are stable. Review of Systems Constitutional: Reports: see HPI. Objective Last 24 Hrs of Vital Signs/I&O Vital Signs Date Time Temp Pulse Resp B/P Pulse O2 O2 Flow FiO2 Ox Delivery Rate 01/15 0945 66 110/88 01/15 0944 66 110/88 01/15 0944 66 110/88 01/15 0800 94 Nasal 1.0L Cannula 01/15 0747 95 Nasal 1.0L Cannula 01/15 0624 97.4 72 20 120/90 94 Nasal 1.0L Cannula 01/15 0000 96 Nasal 1.0L Cannula 01/14 2154 97.8 80 20 140/70 96 01/14 2146 98.1 71 16 132/80 01/14 2145 98.1 71 16 132/80 01/14 1915 96 Nasal 1.0L Cannula 01/14 1600 Nasal 1.0L Cannula 01/14 1443 98.4 71 20 118/62 92 Intake & Output 01/15 1600 01/15 0800 01/15 0000 Intake Total 0 480 Output Total Balance 0 480 Intake, IV 0 Intake, Oral 0 480 Number 0 Bowel Movements Physical Exam General Appearance: Alert, Oriented X3, Cooperative, No Acute Distress Skin: No Rashes, No Breakdown, No Significant Lesion HEENT: Atraumatic, PERRLA, EOMI, Mucous Membr. 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 At [facility] in ED patient had O2 sat of 89. Given his history of CHF and intubation in 2008 patient was admitted for further workup of shortness of breath. plan: COPD exacerbation secondary bronchitis * Patient is saturating well on 1 L oxygen 94% * Titrate oxygen as tolerated, maintain saturation more than 92% * Will obtain pulse ox on rest and ambulation on room air * TRC nebs * Diontinue Solu-Medrol 40 mg twice a day * Start prednisone 60 mg by mouth daily for 2 days, 502, 402, 302, 202, 102 then stop * Continue off antibiotics * Pulmonary consultation was obtained, thanks for recommendation * Symbicort inhaler, patient is on Tikosyn antiarrhythmic that has interaction with Symbicort class DIV QT prolongation and torsade, will avoid for now * Recommendation for outpatient pulmonary function test * Patient will be instructed to follow up with Dr. Jose 1-2 weeks after discharge * Albuterol upon discharge * ProBNP 3080, patient has no signs of congestive heart failure exacerbation, no JVP no lower limb edema, could be related to underlying pulmonary etiology * Echo is pending Supra-therapeutic INR: Patient has history of A. fib on Coumadin. * INR 2.11 * Will dose Coumadin 7.5 mg today * INR tomorrow and will dose accordingly Cardiomyopathy, A. fib, hypercholesterolemia, CHF : Chronic and stable * Continue Tikosyn 250 g twice a day * Continue Carvedilol 2.5 twice a day * Continue Lisinopril 20 mg twice a day * Continue 10 you Furosemide 20 mg * Continue Digoxin 0.125 * Continue Lovastatin 40 mg * Continue Spironolactone 12.5 mg Full code Heart healthy diet DVT prophylaxis mechanical and Coumadin Consultation pulmonology Problem List: 1. Bronchitis 2. COPD suggested by initial evaluation Pain Ratin Pain Location: None Pain Goal: Pain 4 or less Pain Plan: Mild pain pathway Tomorrow's Labs & Rationales: INR
--- NOTE | 2017-01-15 08:20 | NUR ---
Physical Therapy: Consult received and chart reviewed. Pt is currently ambulating independently. Acute skilled PT is not indicated at this time. Will not follow. Thank you.
--- NOTE | 2017-01-15 09:20 | PN- Pulmonary ---
Subjective HPI/Critical Care Issues: pt seen and examined afebrile 1LNC saturating 94% no leukocytosis INR 2.11 echo pending Objective Current Medications: Current Medications Sig/Toby Start time Last Medication Dose Route Stop Time Status Admin Acetaminophen 650 MG Q6P PRN 01/09 2200 AC PO Albuterol Sulfate 3 ML TID 01/10 1600 AC 01/15 INH 0744 Aspirin 81 MG DAILY 01/10 1000 AC 01/14 PO 1204 Atorvastatin Calcium 10 MG 1700 01/10 1700 AC 01/14 PO 1616 Budesonide/ 2 PUF BID 01/14 1308 DC Formoterol Fumarate INH Carvedilol 25 MG BID 01/10 0016 AC 01/14 PO 2145 Digoxin 0.125 MG DAILY 01/10 1000 AC 01/14 PO 0958 Docusate Sodium 100 MG DAILY NEEDED PRN 01/15 0830 AC PO Dofetilide 250 MCG BID 01/10 0015 AC 01/14 PO 2145 Furosemide 20 MG DAILY 01/10 1000 AC 01/14 PO 0958 Guaifenesin 600 MG Q12 01/09 2201 AC 01/14 PO 2145 Ketorolac 15 MG Q6P PRN 01/09 2200 AC Tromethamine IV Lisinopril 20 MG BID 01/10 1000 AC 01/14 PO 2146 Methylprednisolone 40 MG BID 01/12 2200 AC 01/14 IV 2145 Patient Medication 1 ED .STK-MED ONE 01/14 1337 DC Teaching ED 01/14 1338 Spironolactone 12.5 MG DAILY 01/10 1000 AC 01/14 PO 0959 Warfarin Sodium 7.5 MG COUMADIN 1700 ONE 01/14 1700 DC 01/14 PO 01/14 1701 1616 Vital Signs & I&O Last 24 Hrs of Vitals and I&O: Vital Signs Date Time Temp Pulse Resp B/P Pulse O2 O2 Flow FiO2 Ox Delivery Rate 01/15 0800 94 Nasal 1.0L Cannula 01/15 0747 95 Nasal 1.0L Cannula 01/15 0624 97.4 72 20 120/90 94 Nasal 1.0L Cannula 01/15 0000 96 Nasal 1.0L Cannula 01/144 97.8 80 20 140/70 96 01/14 2146 98.1 71 16 132/80 01/145 98.1 71 16 132/80 01/14 1915 96 Nasal 1.0L Cannula 01/14 1600 Nasal 1.0L Cannula 01/14 1443 98.4 71 20 118/62 92 01/14 0958 69 120/60 01/14 0958 69 120/60 01/14 0958 69 12060 Intake & Output 01/15 1600 01/15 0800 01/15 0000 Intake Total 0 480 Output Total Balance 0 480 Intake, IV 0 Intake, Oral 0 480 Number 0 Bowel Movements Exam Other Physical Findings: gen awake and alert heent ncat cvs s1, s2 lungs rare rhonchi abd soft bs+ ext without edema Results Last 24 Hrs of Lab Results: Laboratory Tests 01/15/17 0630: PT 22.0 H, INR 2.11 H Impression/Plan Impression/Plan Impression/Plan: Impression 71 year old man -COPD exacerbation secondary to bronchitis -elevated bnp Plan -f/u ECHO -dc solumedrol and start prednisone 60mg po x 2 days, 50x2, 40x2, 30x2, 20x2, 10x2, then stop -TRC/nebs -symbicort has a reaction with tikosyn, will avoid for now -pfts as outpt -will require follow up within 1-2 wks of discharge -albuterol should be rx upon dc - proair
[2017-01-15] MEDS ORDERED: PREDNISONE10 M2 PO (12:30)
--- NOTE | 2017-01-15 13:58 | NUR ---
O2 SAT 95 ON 1 LITER VIA N/C AT REST O2 SAT 92 ON 1 LITER WITH AMBULATION O2 SAT 92 ON RA WITH AMBULATION O2 SAT 94 ON RA AT REST
[2017-01-15 14:56] VITALS: BP 120/80
--- NOTE | 2017-01-15 15:10 | ECHOCARDIOGRAM REPORT ---
AUGUSTUS PRASAD Age: 71 : 1945 Gender: M Exam Date: 01/15/2017 10:31 Exam Location: [place] Ht (in): 69 Wt (lb): 180 BSA: 2.01 BP: 120 / 90 Ordering Physician: AARON RAHMAN MD Referring Physician: AARON RAHMAN MD Technologist: Jackson Stephenson [facility] Room Number: 232-1 Indications: Shortness of breath Rhythm: Other: pacemaker Technical Quality: Technically difficult study, Poor FINDINGS Left Ventricle Moderate left ventricular dilatation. Mild concentric left ventricular hypertrophy. Abnormal septal motion consistent with pacemaker activation. Severely reduced global left ventricular systolic function. Severely abnormal left ventricular ejection fraction estimated at 20-25%. Abnormal relaxation filling pattern of the left ventricle for age (stage 1 diastolic dysfunction). Right Ventricle Normal right ventricular size and function. Catheter/pacemaker wire in the right ventricular cavity. Right Atrium Mild right atrial dilatation. Catheter/pacemaker wire in the right atrial cavity. Left Atrium Mild to moderate left atrial dilatation. Mitral Valve Mild mitral annular calcification. Mitral valve thickened. Trace mitral regurgitation. Aortic Valve Aortic valve not well visualized. Mild aortic sclerosis. No aortic valve stenosis or regurgitation. Tricuspid Valve Structurally normal tricuspid valve. Trace tricuspid regurgitation. Unable to estimate the right ventricular systolic pressure. Pulmonic Valve Pulmonic valve not well visualized. Pericardium No pericardial effusion. Great Vessels Normal size aortic root. CONCLUSIONS Moderate left ventricular dilatation. Mild concentric left ventricular hypertrophy. Abnormal septal motion consistent with pacemaker activation. Severely reduced global left ventricular systolic function. Severely abnormal left ventricular ejection fraction estimated at 20-25%. Abnormal relaxation filling pattern of the left ventricle for age (stage 1 diastolic dysfunction). Normal right ventricular size and function. Catheter/pacemaker wire in the right ventricular cavity. Mild right atrial dilatation. Catheter/pacemaker wire in the right atrial cavity. Mild to moderate left atrial dilatation. Trace mitral regurgitation. Trace tricuspid regurgitation. Unable to estimate the right ventricular systolic pressure. Chele Gage M.D. (Electronically Signed) Final Date: 15 January 2017 15:09 MEASUREMENTS (Male / Female) Normal Values 2D ECHO LV Diastolic Diameter PLAX 6.5 cm 4.2 - 5.9 / 3.9 - 5.3 cm LV Systolic Diameter PLAX 5.9 cm 2.1 - 4.0 cm LV Fractional Shortening PLAX 9.2 % 25 - 46 % LV Ejection Fraction 2D Teich 19.8 % IVS Diastolic Thickness 1.1 cm LVPW Diastolic Thickness 1.0 cm LV Relative Wall Thickness 0.3 RV Internal Dim ED PLAX 2.9 cm 1.9 - 3.8 cm LVOT Diameter 2.2 cm Aortic Root Diameter 3.3 cm LA Systolic Diameter LX 3.9 cm 3.0 - 4.0 / 2.7 - 3.8 cm LA Volume 42.0 cm 18 - 58 / 22 - 52 cm Ascending Aorta Diameter 3.1 cm DOPPLER AV Peak Velocity 160.0 cm/s AV Peak Gradient 10.2 mmHg AV Mean Velocity 99.1 cm/s AV Mean Gradient 5.0 mmHg AV Velocity Time Integral 27.8 cm LVOT Peak Velocity 72.9 cm/s LVOT Peak Gradient 2.1 mmHg LVOT Mean Velocity 42.9 cm/s LVOT Mean Gradient 1.0 mmHg LVOT Velocity Time Integral 12.4 cm LVOT Stroke Volume 47.1 cm AV Area Cont Eq vti 1.7 cm AV Area Cont Eq pk 1.7 cm MV Peak Velocity 91.0 cm/s MV Peak Gradient 3.3 mmHg MV Mean Velocity 43.4 cm/s MV Mean Gradient 1.0 mmHg Mitral E Point Velocity 36.0 cm/s Mitral A Point Velocity 76.0 cm/s Mitral E to A Ratio 0.5 MV PHT Velocity 66.5 cm/s MV Deceleration [place] 420.0 cm/s MV Pressure Half Time 47.5 ms MV Area PHT 4.6 cm MV Deceleration Time 493.0 ms LV E' Lateral Velocity 10.8 cm/s Mitral E to LV E' Lateral Ratio 3.3 LV E' Septal Velocity 4.8 cm/s Mitral E to LV E' Septal Ratio 7.5
[2017-01-15 21:09] VITALS: BP 142/80
[2017-01-16 06:09] VITALS: BP 110/70
--- NOTE | 2017-01-16 07:27 | PN- Housestaff ---
Subjective Follow-up For: -COPD exacerbation Subjective: Patient was seen and examined today, no overnight events reported by the nurse or the patient, vital signs are stable. Patient offered no new complaint. Patient is stable for discharge today. Review of Systems Constitutional: Reports: see HPI. Objective Last 24 Hrs of Vital Signs/I&O Vital Signs Date Time Temp Pulse Resp B/P Pulse O2 O2 Flow FiO2 Ox Delivery Rate 01/16 847 68 104/80 01/17 0847 68 104/80 01/16 847 68 104/80 Physical Exam General Appearance: Alert, Oriented X3, Cooperative, No Acute Distress Skin: No Rashes, No Breakdown, No Significant Lesion HEENT: Atraumatic, PERRLA, EOMI, Mucous Membr. 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 At [facility] in ED patient had O2 sat of 89. Given his history of CHF and intubation in 2008 patient was admitted for further workup of shortness of breath. plan: COPD exacerbation secondary bronchitis * Patient is saturating well on room air 92% * TRC nebs * Continue prednisone 60 mg by mouth daily for 2 days, 502, 402, 302, 202, 102 then stop * Continue off antibiotics * Pulmonary consultation was obtained, thanks for recommendation * Symbicort inhaler and albuterol inhaler (beta-2 agonist): patient is on Tikosyn antiarrhythmic that has interaction with Symbicort class DIV QT prolongation and torsade * Recommendation for outpatient pulmonary function test * Patient will be instructed to follow up with Dr. Jose 1-2 weeks after discharge * ProBNP 3080, patient has no signs of congestive heart failure exacerbation, no JVP no lower limb edema, could be related to underlying pulmonary etiology * Echocardiogram 01/15/17 CONCLUSIONS Moderate left ventricular dilatation. Mild concentric left ventricular hypertrophy. Abnormal septal motion consistent with pacemaker activation. Severely reduced global left ventricular systolic function. Severely abnormal left ventricular ejection fraction estimated at 20-25%. Abnormal relaxation filling pattern of the left ventricle for age (stage 1 diastolic dysfunction). Normal right ventricular size and function. Catheter/pacemaker wire in the right ventricular cavity. Mild right atrial dilatation. Catheter/pacemaker wire in the right atrial cavity. Mild to moderate left atrial dilatation. Trace mitral regurgitation. Trace tricuspid regurgitation. Unable to estimate the right ventricular systolic pressure. Supra-therapeutic INR: Patient has history of A. fib on Coumadin. * INR 2.85 * Will dose Coumadin 5 mg today * INR tomorrow and will dose accordingly Cardiomyopathy, A. fib, hypercholesterolemia, CHF : Chronic and stable * Continue Tikosyn 250 g twice a day * Continue Carvedilol 2.5 twice a day * Continue Lisinopril 20 mg twice a day * Continue 10 you Furosemide 20 mg * Continue Digoxin 0.125 * Continue Lovastatin 40 mg * Continue Spironolactone 12.5 mg Full code Heart healthy diet DVT prophylaxis mechanical and Coumadin Consultation pulmonology Patient is for discharge today Problem List: 1. Bronchitis Pain Ratin Pain Location: None Pain Goal: Pain 4 or less Pain Plan: Mild pain pathway Tomorrow's Labs & Rationales: None
[2017-01-16 08:16] LABS: PT 29.6 SEC (9.4-12.5)
[2017-01-16 08:47] VITALS: BP 104/80
[2017-01-16] MEDS ORDERED: ATROVENT HFA12.9 GM INH (10:25)
--- NOTE | 2017-01-16 10:29 | PN- Att Addend ---
Attending Addendum Attending Brief Note Patient much better oxygen is off his not short of breath. His vital signs are stable, his a febrile. She ate Dr. Jose's input and recommendations. His lungs are much clearer and will discharge today see the CMR discharge summary my to follow-up with me and Dr. Jose have pulmonary function tests as an outpatient tapering steroids down. 24 TOTALS 01/16 0000 01/15 0000 Intake Total 1250 1160 Output Total Balance 1250 1160 Intake, IV 0 Intake, Oral 1250 1160 Number 1 Bowel Movements Patient 180 lb Weight Laboratory Tests 01/16/17 0633: PT 29.6 H, INR 2.85 H 01/15/17 0630: PT 22.0 H, INR 2.11 H Vital Signs Date Time Temp Pulse Resp B/P Pulse O2 O2 Flow FiO2 Ox Delivery Rate 01/16 0847 68 104/80 01/16 0847 68 104/80 01/16 0847 68 104/80 01/16 0802 97 Room Air Room Air 01/16 0800 92 Room Air 01/16 0609 97.7 70 20 110/70 94 Room Air 01/16 0000 93 Room Air 01/15 2109 98.1 70 18 142/80 93 Room Air 01/15 2105 92 Room Air 01/15 2101 70 142/80 01/15 2101 70 142/80 01/15 1600 Room Air 01/15 1456 97.9 70 20 120/80 91 01/15 1349 93 Room Air Intake & Output 01/16 1600 01/16 0800 01/16 0000 Intake Total 240 700 Output Total Balance 240 700 Intake, IV 0 Intake, Oral 240 700 Number 0 Bowel Movements
--- NOTE | 2017-01-16 12:39 | PN- Pulmonary ---
Subjective HPI/Critical Care Issues: pt seen and examined feels better less congested, still with cough beta agonists interact with cardiac meds class D Objective Current Medications: Current Medications Sig/Toby Start time Last Medication Dose Route Stop Time Status Admin Acetaminophen 650 MG Q6P PRN 01/09 2200 AC PO Albuterol Sulfate 3 ML TID 01/10 1600 AC 01/16 INH 1221 Aspirin 81 MG DAILY 01/10 1000 AC 01/16 PO 0846 Atorvastatin Calcium 10 MG 1700 01/10 1700 AC 01/15 PO 1602 Carvedilol 25 MG BID 01/10 0016 AC 01/16 PO 0847 Digoxin 0.125 MG DAILY 01/10 1000 AC 01/16 PO 0847 Docusate Sodium 100 MG DAILY NEEDED PRN 01/15 0830 AC PO Dofetilide 250 MCG BID 01/10 0015 AC 01/16 PO 0846 Furosemide 20 MG DAILY 01/10 1000 AC 01/16 PO 0847 Guaifenesin 600 MG Q12 01/09 2201 AC 01/16 PO 0847 Ketorolac 15 MG Q6P PRN 01/09 2200 AC Tromethamine IV Lisinopril 20 MG BID 01/10 1000 AC 01/16 PO 0847 Prednisone 50 MG DAILY 01/17 1000 AC PO 01/18 2300 Prednisone 60 MG DAILY 01/15 1000 AC 01/16 PO 01/16 2200 0846 Spironolactone 12.5 MG DAILY 01/10 1000 AC 01/16 PO 0846 Warfarin Sodium 5 MG COUMADIN 1700 ONE 01/16 1200 DC PO 01/16 1201 Warfarin Sodium 7.5 MG COUMADIN 1700 ONE 01/15 1700 DC 01/15 PO 01/15 1701 1602 Vital Signs & I&O Last 24 Hrs of Vitals and I&O: Vital Signs Date Time Temp Pulse Resp B/P Pulse O2 O2 Flow FiO2 Ox Delivery Rate 01/16 0847 68 104/80 01/16 0847 68 104/80 01/16 0847 68 104/80 01/16 0802 97 Room Air Room Air 01/16 0800 92 Room Air 01/16 0609 97.7 70 20 110/70 94 Room Air 01/16 0000 93 Room Air 01/15 2109 98.1 70 18 142/80 93 Room Air 01/15 2105 92 Room Air 01/15 2101 70 142/80 01/15 2101 70 142/80 01/15 1600 Room Air 01/15 1456 97.9 70 20 120/80 91 01/15 1349 93 Room Air Intake & Output 01/16 1600 01/16 0800 01/16 0000 Intake Total 240 700 Output Total Balance 240 700 Intake, IV 0 Intake, Oral 240 700 Number 0 Bowel Movements Exam Other Physical Findings: gen awake and alert heent ncat cvs s1, s2 lungs rare rhonchi abd soft bs+ ext without edema Results Last 24 Hrs of Lab Results: Laboratory Tests 01/16/17 0633: PT 29.6 H, INR 2.85 H Impression/Plan Impression/Plan Impression/Plan: Impression 71 year old man -COPD exacerbation secondary to bronchitis -elevated bnp Plan -prednisone 60mg po x 2 days, 50x2, 40x2, 30x2, 20x2, 10x2, then stop -TRC/nebs -symbicort has a reaction with tikosyn, will avoid for now -pfts as outpt -will require follow up within 1-2 wks of discharge [employer] - interact (Class D) with his cardiac meds recommend Atrovent HFA upon d/c and will have PFTs to determine further management
--- NOTE | 2017-01-30 14:49 | Discharge Summary ---
Visit Information Visit Dates Admission Date: 01/09/17 Discharge Date: 01/16/17 Hospital Course Course Attending Physician: ANTELMO ELIZONDO MD Primary Care Physician: ANTELMO ELIZONDO MD Consulting Request: Consulting Specialty: Pulmonary Disease Consulting Physician: Dr. Jose Reason for Consult: exacerbation of COPD hypoxemia Hospital Course: 71-year-old male with many comorbidities has had Several Days of shortness of breath aggressively worse to the emergency room in O2 saturation of 89%. Conservative treatment did not work as an outpatient. Patient also had a supratherapeutic INR. Patient was admitted was treated with IV steroids total respiratory care, took several days for him to improve your patient was seen by pulmonary Dr. Jose and recommendations were given. The day of discharge patient was breathing better tapering oxygen down his chest x-ray showed no acute infiltrates. 01/09/17 2004: Anion Gap 10, Estimated GFR > 60, BUN/Creatinine Ratio 20.0, Glucose 115 H, Lactic Acid 0.7, Calcium 8.7, Total Bilirubin 0.5, AST 30, ALT 37, Alkaline Phosphatase 72, Creatine Kinase 214 H, Troponin I 0.02, Total Protein 6.9, Albumin 3.7, Globulin 3.2, Albumin/Globulin Ratio 1.2, PT 55.0 *H, INR 5.33 *H, CBC w Diff NO MAN DIFF REQ, RBC 4.37 L, MCV 81.9, MCH 27.1, RDW 14.3, MPV 7.5, Gran % 68.6, Lymphocytes % 20.6, Monocytes % 8.4, Eosinophils % 2.1, Basophils % 0.3, Absolute Granulocytes 3.7, Absolute Lymphocytes 1.1 L, Absolute Monocytes 0.5, Absolute Eosinophils 0.1, Absolute Basophils 0, PUBS MCHC 33.1 Microbiology 01/10 2256 URINE ROUT: Legionella Antigen - ORD 01/10 2256 URINE ROUT: Streptococcus pneumoniae Antigen (M - ORD 01/10 2256 LOWER RESP: Respiratory Culture - ORD 01/10 2256 LOWER RESP: Gram Stain - ORD 01/09 2010 BLOOD: Blood Culture - RECD 01/10 2004 BLOOD: Blood Culture - RECD 01/09 194 NASOPHARYN: Influenza Virus A & B Rapid Smear - ORD 01/10/17 0630: Anion Gap 10, Estimated GFR > 60, BUN/Creatinine Ratio 28.3 H, CBC w Diff NO MAN DIFF REQ, RBC 4.25 L, MCV 81.4, MCH 27.0, RDW 14.5, MPV 8.1, Gran % 67.6, Lymphocytes % 28.7, Monocytes % 3.1, Eosinophils % 0.2, Basophils % 0.4, Absolute Granulocytes 1.9, Absolute Lymphocytes 0.8 L, Absolute Monocytes 0.1 L, Absolute Eosinophils 0, Absolute Basophils 0, PUBS MCHC 33.2 01/10/17 0010: Troponin I 0.02 Laboratory Tests 01/14/17 0732: PT 20.2 H, INR 1.94 H 01/13/17 1600: PT 23.9 H, INR 2.29 H 01/13/17 0830: Anion Gap 9, Estimated GFR > 60, BUN/Creatinine Ratio 26.3 H, Uyr-M-Ekckzvbzueb Pept 3080 H 01/11/17 0650: PT 49.2 *H, INR 4.76 *H 01/16/17 0633: PT 29.6 H, INR 2.85 H 01/15/17 0630: PT 22.0 H, INR 2.11 H SERVICE DATE: 01/09/17 EXAM TYPE: RAD - XRY-CHEST XRAY, PA AND LATERAL EXAMINATION: XR CHEST CLINICAL INFORMATION: Cough. Shortness of breath COMPARISON: Chest x-ray 09/08/2010 TECHNIQUE: 2 views of the chest were obtained. FINDINGS: Dual-lead pacemaker in right atrium and right ventricle unchanged position since prior study. Heart size is normal. There is calcification of aorta. No pulmonary vascular congestion. Lungs are clear. No pleural effusion. Multilevel degenerative change of spine with disc height narrowing and endplate spurs. IMPRESSION: No acute change of chest.PATIENT: AUGUSTUS PRASAD PRESENT AGE: 71 PATIENT ACCOUNT NO: [id number] : 47 LOCATION: 2NA ORDERING PHYSICIAN: TOMI DO MD SERVICE DATE: 01/13/17- EXAM TYPE: CAT - CT ABD & PELVIS ANGIOGRAM EXAMINATION: CT ANGIOGRAM ABDOMEN AND PELVIS CLINICAL INFORMATION: None abdominal aortic aneurysm. Evaluate for worsening disease. Post endovascular aneurysm repair September 2016 COMPARISON: Previous noncontrast CT of the abdomen and pelvis August 2016 TECHNIQUE: Multiple axial images were obtained through the abdomen and pelvis following the administration of 100 mL of Optiray 320 intravenous contrast. Images were reviewed on a dedicated 3-D workstation. DLP: 1046 mGy-cm FINDINGS: There is a new aorto biiliac stent graft. The stent begins in the infrarenal abdominal aorta and extends into the bilateral common iliac arteries. There is embolization of the right internal iliac artery. There is a lower abdominal and right common iliac artery aneurysm. Lower abdominal aneurysm does not appear appreciably changed in size. Distal abdominal aortic aneurysm measures maximum 5.4 x 7.7 cm AP and transverse dimension axial image 44 series 7 compared to 5.5 x 7.7 cm axial image 40 series 2 and August 2016 exam. This appears similar in shape. There may be slight interval increase in the right common iliac artery aneurysm measuring 5.9 x 6.2 cm axial image 47 series 7 compared to 5.7 x 6 cm on previous exam. Ectatic or or small aneurysm measures 2 x 2.5 cm and does not appear appreciably changed. There is a small type I A endoleak along the anterior proximal margin of the stent graft. This area measures 1.2 x 1.2 cm in AP and transverse dimension axial image 244 series 5 and 1.6 cm in longitudinal dimension, coronal reconstructed image 49. There is early contrast seen in the IVC. This is greatest in the intrahepatic IVC and hepatic veins and probably represents backflow from the hard from increased right heart pressure. The thoracic aorta is normal in caliber. The suprarenal abdominal aorta is normal in caliber. The celiac axis and SMA are patent. There are single patent renal arteries. The external iliac and common femoral arteries are patent and normal in caliber. The left internal iliac artery is patent. The lung bases are clear. The heart is enlarged. The liver is prominent. No evidence of cirrhosis is seen. There is a 1 cm low-attenuation area in the medial segment of the left lobe axial image 15 series 7 There is a 1.5 cm low-attenuation lesion in the posterior segment of the right lobe axial image 37 series 7. This demonstrates peripheral puddling enhancement and may represent a small hemangioma. There is a second 6 mm low-attenuation lesion in the posterior segment of the right lobe axial image 30 series 7. This is difficult to characterize due to small size but may represent a cyst. There are gallstones in the gallbladder. The spleen is normal. The pancreas is normal. The adrenal glands are normal. There is left hydronephrosis. The left ureter does not appear dilated and this may represent a left UPJ obstruction. There is a 2 cm cyst exophytic to the upper pole of the left kidney that is unchanged. The right kidney is normal. The prostate gland is enlarged and protrudes into the base of the bladder. There is a large left-sided bladder diverticulum. There is evidence of diverticulosis. No evidence of diverticulitis or colitis is seen. There are loops of small bowel seen superior and anterior to the transverse colon and left lobe of the liver. Appearance is questionable for possible internal hernia. There is no evidence of obstruction. There is evidence of previous right inguinal hernia repair. No ascites or adenopathy is seen. There is severe degenerative change of the spine. IMPRESSION: New aorto biiliac stent graft. There is a small type I A endoleak adjacent to the anterior aspect of the proximal end of the stent graft. There is no appreciable change in the distal abdominal aortic aneurysm size. There may be slight interval increase in size in the right common iliac artery aneurysm. There is early contrast filling of the IVC. This is greatest in the intrahepatic IVC and hepatic veins and therefore likely represents reflux of contrast from the heart due to elevated right heart pressures. There are several low-attenuation liver lesions. These are not seen on previous noncontrast enhanced exam and cannot be compared. These could be evaluated with liver MRI if clinically indicated. Gallstones. Left hydronephrosis. The left ureter does not appear dilated a represent a left UPJ obstruction. Stable left renal cyst. Enlarged prostate gland. Left-sided bladder diverticulum. Diverticulosis. Small bowel is seen anterior and superior to the transverse colon and left lobe of the liver, and internal hernia should be considered. No evidence of obstruction. SERVICE DATE: 01/25/171205 EXAM TYPE: RAD - XRY-CHEST XRAY, PA AND LATERAL EXAMINATION: XR CHEST CLINICAL INFORMATION: COPD. Shortness of breath. COMPARISON: Chest x-ray dated 01/09/2017 and multiple prior exams dating back to 10/28/2009. TECHNIQUE: 2 views of the chest were obtained. FINDINGS: A right atrial pacer lead and a right ventricular CD lead are in place, unchanged. The cardiomediastinal silhouette is within normal limits in size. Calcification of the aorta is noted. Lungs bilaterally are symmetrically hyperinflated with flattening of the hemidiaphragms and increase in retrosternal airspace, consistent with obstructive lung disease. Compared to the prior exam, no significant interval change is seen. There is biapical emphysematous change noted with hyperlucency seen. No focal lung nodule or mass is appreciated. No focal consolidation, effusion or pneumothorax is seen. There is a convex left thoracolumbar scoliosis and diffuse osteopenia is noted. Apparent anterior compression of the L2 vertebral body is likely related to the patient's scoliosis. Recent CT scan from 01/13/2017 shows no fracture. An aortic stent is partially imaged. IMPRESSION: Obstructive lung disease with no evidence of acute pneumonia. Complications: None Allergies: Coded Allergies: morphine (Intermediate, ITCHING 12/27/15) Disposition Summary Disposition Principal Diagnosis: Exacerbation of COPD secondary to acute bronchitis Additional Diagnosis: Asthma BPH CHF Nonischemic cardiomyopathy Pacemaker/defibrillator History of atrial fibrillation on anticoagulation Discharge Disposition: home health services Discharge Instructions General Discharge Information Code Status: Full Code Patient's Diet: Healthy heart Patient's Activity: Self-limited Follow-Up Instructions/Appts: Follow-up with Dr. Nehemias Jose Medications at Discharge Discharge Medications: Continue taking these medications: Furosemide (Furosemide) 20 MG TABLET 1 Tablet ORAL DAILY Qty = 90 Digoxin (Digoxin) 125 MCG TABLET 1 Tablet ORAL DAILY Comments: Last Taken:01/16/17 Time:0900 Carvedilol (Coreg) 25 MG TABLET 1 Tablet ORAL TWICE DAILY Comments: Last Taken:01/16/17 Time:0900 Lisinopril (Lisinopril) 20 MG TABLET 1 Tablet ORAL TWICE DAILY Comments: Last Taken:01/16/17 Time:0900 Warfarin Sodium (Coumadin) 7.5 MG TABLET 1 Tablet ORAL DAILY Lovastatin (Lovastatin) 40 MG TABLET 1 Tablet ORAL DAILY Instructions: with food Aspirin (Children's Aspirin) 81 MG TAB.CHEW 1 Tablet ORAL DAILY Comments: Last Taken:01/16/17 Time:0900 Spironolactone (Aldactone) 25 MG TABLET 12.5 Milligram ORAL DAILY Comments: Last Taken:01/16/17 Time:0900 Dofetilide (Tikosyn) 250 MCG CAPSULE 1 Capsule ORAL TWICE DAILY Comments: Last Taken:01/16/17 Time:0900 Oxycodone HCl/Acetaminophen (Percocet 5-325 MG Tablet) 5 MG-325 MG TABLET 1 Tablet ORAL EVERY 4-6 HOURS as needed for PAIN Qty = 18 Comments: Last Taken:NOT GIVEN IN HOSPITAL Time: Start taking the following new medications: Prednisone (Prednisone) 10 MG TABLET 1 Tablet ORAL DAILY Qty = 30 No Refills Instructions: please take 5 tablets on 01/17 and 01/18 Please take 4 tablets on 01/19 and 01/20 Please take 3 tablets on 01/21 and 01/22 Please take 2 tablets on 01/23 and 01/24 Please take 1 tablet on 01/25 and 01/26 then stop Comments: Last Taken:01/16/17 Time:0900 Ipratropium Mccleary (Atrovent Hfa) 17 MCG/ACTUATION HFA.AER.AD 2 PUFF Inhale through mouth 4 TIMES A DAY as needed for SHORTNESS OF BREATH Qty = 1 No Refills Comments: Last Taken:NOT GIVEN IN HOSPITAL Time: Copies To: ANTELMO ELIZONDO MD; JACKLYN ESTRADA,JADE Attending Review Statement Documenting Attending: ANTELMO ELIZONDO MD
== END 2017-01-16 17:00 | DRG 191 ==
LOC: ENRESERVTM → ENRESERVDT → ERH 18:40 → ENPENDDIS 22:16 → 2NA 22:16 → ERHI 22:16 → EDBEDREQ 22:59 → 2NA 01-10 00:40
PROVIDERS: Internal Medicine Hematology & Oncology; Physician Assistant Medical; Student in an Organized Health Care Education/Training Program; ADMIT Internal Medicine
DX: J44.0 Chronic obstructive pulmonary disease with (acute) lower respiratory infection (principal); I50.22 Chronic systolic (congestive) heart failure; I42.9 Cardiomyopathy, unspecified; I11.0 Hypertensive heart disease with heart failure; J20.9 Acute bronchitis, unspecified; I48.91 Unspecified atrial fibrillation; J45.909 Unspecified asthma, uncomplicated; N40.0 Benign prostatic hyperplasia without lower urinary tract symptoms; M19.90 Unspecified osteoarthritis, unspecified site; Z95.810 Presence of automatic (implantable) cardiac defibrillator; Z79.01 Long term (current) use of anticoagulants; Z87.891 Personal history of nicotine dependence; E78.00 Pure hypercholesterolemia, unspecified; I25.10 Atherosclerotic heart disease of native coronary artery without angina pectoris; J44.1 Chronic obstructive pulmonary disease with (acute) exacerbation
CPT/HCPCS: 2NAP; ERO; 36415; 74174; 82436; 87040; 87070; 87449; 87450; 87804; 87804-59; 93005; 93010; 93306; 96374; J0456; J2920; J2930; J3490; J7060; J7512